=== PATIENT | male | born 1940 | race Caucasian/White ===

== ENCOUNTER 2019-04-14 10:13 | Outpatient (RCR) | payer MEDICARE, MEDICAID, SELFPAY | END 2019-04-27 00:01 | LOC: WOUND 10:13 | PROVIDERS: Family Provider Family Medicine; Visit Provider Nurse Practitioner Family | DX: I87.2 Venous insufficiency (chronic) (peripheral) (principal); L97.822 Non-pressure chronic ulcer of other part of left lower leg with fat layer exposed; L97.812 Non-pressure chronic ulcer of other part of right lower leg with fat layer exposed | CPT/HCPCS: 11042 ×2; 93923 ==

== ENCOUNTER 2019-05-26 13:04 | Outpatient (RCR) | payer MEDICARE, MEDICAID, SELFPAY | END 2019-05-28 23:59 | disposition home or self-care (01) | LOC: WOUND 13:04 | PROVIDERS: Family Provider Family Medicine; PCP Family Medicine; Visit Provider Nurse Practitioner Family | DX: I87.2 Venous insufficiency (chronic) (peripheral) (principal); L97.822 Non-pressure chronic ulcer of other part of left lower leg with fat layer exposed; L97.812 Non-pressure chronic ulcer of other part of right lower leg with fat layer exposed | CPT/HCPCS: 11042 ==

== ENCOUNTER 2019-06-09 10:19 | Outpatient (RCR) | payer MEDICARE, MEDICAID, SELFPAY | END 2019-06-26 23:59 | disposition home or self-care (01) | LOC: WOUND 10:19 | PROVIDERS: Family Provider Family Medicine; PCP Family Medicine; Visit Provider Nurse Practitioner Family | DX: I87.2 Venous insufficiency (chronic) (peripheral) (principal); L97.822 Non-pressure chronic ulcer of other part of left lower leg with fat layer exposed | CPT/HCPCS: 11042 ==

== ENCOUNTER 2019-07-14 09:21 | Outpatient (RCR) | payer MEDICARE, MEDICAID, SELFPAY | END 2019-07-27 23:59 | disposition home or self-care (01) | LOC: WOUND 09:21 | PROVIDERS: Family Provider Family Medicine; PCP Family Medicine; Visit Provider Emergency Medicine | DX: I87.2 Venous insufficiency (chronic) (peripheral) (principal); L97.822 Non-pressure chronic ulcer of other part of left lower leg with fat layer exposed | CPT/HCPCS: 11042 ==

== ENCOUNTER 2019-08-25 08:17 | Outpatient (RCR) | payer MEDICARE, MEDICAID, SELFPAY ==
--- NOTE | 2019-08-09 10:29 | USCV_ITS ---
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 Risk Factors: None Previous Vascular Surgery: STENTS RT LEG RIGHT LEFT BP: 130.0 / 76.00 BP: 130.0/ 70.00 0 0 Waveform Velocity (cm/s) Velocity (cm/s) Waveform Triphasic 120.2 Iliac Prox Triphasic Iliac Mid 97.6 Triphasic 99.6 Iliac Distal Biphasic 76.9 PIPE SUPERVISOR Biphasic 88.7 SFA Prox Biphasic 78.5 SFA Mid Biphasic 59.7 SFA Dist Triphasic POP 65.3 Biphasic 54.2 HOIST OPERATOR Monophasic 45.0 DPA 1.1 MARI FINDINGS Normal resting MARI Mild to moderate plaques in the iliac and femoral arteries on the right side CONCLUSIONS No evidence of any significant arterial obstruction in the [facility] lower extremity, based on the above findings. Dr Yomi Nielsen MD [facility] (Electronically Signed) Final Date: 09 August 2019 12:22 S
== END 2019-08-26 23:59 | disposition home or self-care (01) ==
LOC: WOUND 08:17
PROVIDERS: Family Provider Family Medicine; PCP Family Medicine; Visit Provider Thoracic Surgery (Cardiothoracic Vascular Surgery)
DX: I87.2 Venous insufficiency (chronic) (peripheral) (principal); L97.822 Non-pressure chronic ulcer of other part of left lower leg with fat layer exposed
CPT/HCPCS: 11042; 93926

== ENCOUNTER 2019-09-08 08:24 | Outpatient (CLI) | payer MEDICARE, MEDICAID, SELFPAY | END 2019-09-08 08:25 | disposition home or self-care (01) | LOC: WOUND 08:27 | PROVIDERS: Family Provider Family Medicine; PCP Family Medicine; Visit Provider Thoracic Surgery (Cardiothoracic Vascular Surgery) | DX: I87.2 Venous insufficiency (chronic) (peripheral) (principal); L97.822 Non-pressure chronic ulcer of other part of left lower leg with fat layer exposed | CPT/HCPCS: 11042 ==

== ENCOUNTER 2019-09-15 08:37 | Outpatient (CLI) | payer MEDICARE, MEDICAID, SELFPAY | END 2019-09-15 08:38 | disposition home or self-care (01) | LOC: WOUND 08:38 | PROVIDERS: Family Provider Family Medicine; PCP Family Medicine; Visit Provider Thoracic Surgery (Cardiothoracic Vascular Surgery) | DX: I87.2 Venous insufficiency (chronic) (peripheral) (principal); L97.822 Non-pressure chronic ulcer of other part of left lower leg with fat layer exposed | CPT/HCPCS: 11042 ==

== ENCOUNTER 2019-09-22 09:53 | Outpatient (CLI) | payer MEDICARE, MEDICAID, SELFPAY | END 2019-09-22 09:54 | disposition home or self-care (01) | LOC: WOUND 09:54 | PROVIDERS: Family Provider Family Medicine; PCP Family Medicine; Visit Provider Thoracic Surgery (Cardiothoracic Vascular Surgery) | DX: I87.2 Venous insufficiency (chronic) (peripheral) (principal); L97.822 Non-pressure chronic ulcer of other part of left lower leg with fat layer exposed | CPT/HCPCS: 11042 ==

== ENCOUNTER → 2019-09-28 08:36 | Outpatient (BNVA) | payer MEDICARE, MEDICAID, SELFPAY | PROVIDERS: Family Provider Family Medicine; PCP Family Medicine; Visit Provider Internal Medicine Cardiovascular Disease | DX: I73.9 Peripheral vascular disease, unspecified (principal) | CPT/HCPCS: 80048; 85025; 87635 ==

== ENCOUNTER 2019-09-30 12:11 | Observation (INO) | payer MEDICARE, MEDICAID, SELFPAY ==
[2019-09-30] VITALS (17 sets, daily range): BP systolic 130–149; BP diastolic 75–90; PULSE 58–72; RESP 16–25; TEMP 36.4–36.5; O2SAT 96–98; BMI 33.0
--- NOTE | 2019-09-30 09:00 | XACV_ITS ---
Wt: 113 kg BSA: 2.45 m2 Gender: Male : 1940 Exam Type: Invasive Peripheral Vascular Procedure(s): Procedure Description: Peripheral Cath Diagnostic Procedure Procedure Description: Abdominal aortic angiography Procedure Description: Iliac arterial aortic angiography Procedure Description: Lower extremities' angiography Exam Priority: Routine Lower Extremity Interventional Findings Indication for peripheral angiogram: Lifestyle limiting claudication. #1 Abdominal aorta: Luminal irregularities #2 Left and renal artery has luminal irregularities. #3 Right common iliac artery has luminal irregularity #4 Left common iliac artery has luminal irregularities #5 Left internal iliac artery has luminal irregularity #7 Right external, internal iliac and common femoral artery has luminal irregularity #8 Left common femoral artery is luminal irregularity #9 Left profunda femoral artery has luminal irregularity #10 Left SFA has luminal irregularities #11 Left popliteal artery has luminal irregularities#12 Left tibioperoneal trunk has luminal irregularity with good three-vessel runoff, right side popliteal artery with 2 vessel runoff noted below the knee . Recommendations 1-Return to inpatient for close monitoring and routine cath care2-Risk factor modification for secondary prevention3-Statin and aspirin 81 mg life--long, if tolerated4-Continue optimal medical management5-Follow up with Dr. Branch and your primary care in 10 days. Access Site Site: Right Femoral artery Sheath Size: 6 Fr Hemost... Success: Unsuccessful Procedure Details Findings Procedure Consent Obtained. Pre-Procedure Time Out. Identified patient by full name and date of as verbalized by the patient/guarantor. Does the consent match the physician's order: Yes. Accurate & Complete Informed Consent: Yes. Inpatient/Outpatient History & Physical on Chart: Yes. If H&P is completed, is and addenduem needed: N/A; If yes, is the addendum complete: N/A. Visualize and Verify Site with Patient/Guarantor: N/A. Relevant Radiology Images available: N/A. The risks, benefits, and alternatives of sedation and/or procedure were discussed by physician. The patient agrees to continue. Procedure started. Correct patient, site and procedure confirmed by cath team. Current diagnosis: PVD. PERRLA. 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 Lungs clear x 5 lobes. IV Site on Arrival: 18 gauge in the left anticubital. IV Fluids: 0.9% NaCl at KVO. 0 mL infused prior to garage laborer. Pre Procedural Pulses: bilateral dorsalis pedis was Doppled. Pre Procedural Pulses: bilateral posterior tibial was Doppled. Oxygen started at 2liters/min via nasal canula. bilateral groins was prepped with chloroprep then draped in the usual sterile fashion. Physician notified. Baseline sample Acquired. HR: 57 BPM. Equipment: 6F - Femoral. patients medications: GISELLE inhibitor 5mg, Aspirin 81mg, Beta ketan 50mg, Plavix 75mg, Statin 80mg. Physician arrived. Physician scrubbed in. Time out performed with cath team. Lidocaine 1% infiltrated to the right groin. Arterial access obtained with micropuncture set. A 5FrFr UF catheter in over wire. and seated in the distal aorta. wire out. Abdominal aortogram performed in AP @ 10 mL/sec for a total of 30 mL. UF seated at the bifurcation left leg runoff performed 10ml for a total of 30ml. glide wire inserted and the UF removed Rim inserted and seated at the bifurcation. left leg runoff performed in AP @ 10 mL/sec for a total of 30 mL. glide wire inserted RIM removed. Seeker inserted over the wire and advanced down left leg. hand injection performed left lower leg. wire inserted Seeker removed. right leg runoff performed thru [id number] for a total of 30ml. A Right femoral angiogram was performed to determine safe placement of closure device. Sheath(s) removed and manual pressure held until hemostasis was achieved. Sterile 4x4 and Op-site applied to the puncture site. No oozing or hematoma noted. Post sheath removal instructions were given and the patient verbalized understanding. Post Procedure: Pulses reassessed and unchanged. PERRLA. 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 No VTE prophylaxis required. Medication's Wasted: Heparin = 1000 Units. Total IV fluids: 50 mL. Fluoro: 10:05. Contrast type used: Visipaque 320 mgI/mL, 500 mL bottle. [id number]. [id number]. Post-op diagnosis: skin ulcer. Complications: none. Estimated blood loss: 5mL-10mL. Procedure completed. Patient transferred by bed to ICU. Procedure Medications Start: 10:17 AM Stop: 10:17 AM Medication: Versed Amount: 1 mg Route: I.V. Start: 10:18 AM Stop: 10:18 AM Medication: Fentanyl Amount: 50 mcg Route: I.V. Start: 10:44 AM Stop: 10:44 AM Medication: Versed Amount: 1 mg Route: I.V. Start: 10:44 AM Stop: 10:44 AM Medication: Fentanyl Amount: 50 mcg Route: I.V. I, the attending physician, have reviewed and verified all procedure medications. Yes, all medications given per verbal order History/Risk Factors Hypertension: Yes Dyslipidemia: Yes Peripheral Arterial Disease (PAD): Yes Myocardial Infarction (OH): No Obesity: Yes Renal Disease: No Tobacco Use: Former Prior Interventions PCI: Yes CABG: No Valve Surgery: No Report Signatures Finalized by:Tate Branch MD on 10/16/2019 4:13:42 PM
[2019-09-30] MEDS: diphenhydrAMINE 50 mg Capsule PO (09:14)
--- NOTE | 2019-09-30 09:20 | SUR.PREOP ---
The patient had several questions about why he might have to spend the night. This nurse along with Lucas Delgado RN, CASING IN LINE SETTER, explained the different scenarios to the patient and he is adamant about going home now, requesting to call his caregiver immediately. Once talking with Rubia, the caregiver, the patient decided that he would stay long enough to talk to Dr. Branch.
--- NOTE | 2019-09-30 09:53 | SUR.PREOP ---
Dr Branch at bedside to talk to the patient. Will continue with angiogram at this time.
--- NOTE | 2019-09-30 09:56 | W.PM.OPSFHP ---
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 Today he is here for peripheral vascular angiogram for left leg. Patient continues to have lifestyle limiting claudication and nonhealing left leg ulcer. He denies fever chills nausea vomiting diarrhea. Patient has been explained all risk benefit and alternative for the procedure. Medications/Allergies* Home Medications Medication Instructions Recorded Confirmed Type aspirin 81 mg tablet,delayed 81 mg PO DAILY tab 04/27/19 08/18/19 History release clopidogrel 75 mg tablet 75 mg PO DAILY tab 04/27/19 08/18/19 History lisinopril 5 mg tablet 5 mg PO DAILY tab 04/27/19 08/18/19 History metoprolol tartrate 25 mg tablet 50 mg PO DAILY tab 04/27/19 08/18/19 History simvastatin 80 mg tablet 80 mg PO ONCE 04/27/19 08/18/19 History Allergies/Adverse Reactions Allergy/AdvReac Type Severity Reaction Status Date / Time adhesive tape Allergy RASH Verified 07/05/19 15:14 bacitracin Allergy ITCHING Verified 07/05/19 15:14 [From Neosporin ([id number])] minocycline Allergy DIFFICULTY Verified 07/05/19 15:14 BREATHING neomycin Allergy ITCHING Verified 07/05/19 15:14 [From Neosporin ([id number])] polymyxin B Allergy ITCHING Verified 07/05/19 15:14 [From Neosporin ([id number])] Current Medications: Generic Name Dose Route Start Last Admin Trade Name Freq PRN Reason Stop Dose Admin Sodium Chloride 1,000 mls @ 50 mls/hr 09/30/19 09:00 09/30/19 09:14 Sodium Chloride 0.9% IV 10/01/19 04:59 Not Given .Q20H ONE Pertinent History/Comorbid Conditions* Medical History (Updated 07/05/19 @ 15:14 by Alen Winters MD) HTN (hypertension) Ischemia of extremity Ischemia of lower extremity Umbilical hernia Surgical History (Updated 07/05/19 @ 15:14 by Alen Winters MD) History of coronary artery stent placement Family History (Updated 04/29/19 @ 13:19 by Grace Luciano RN) Denies family history of Diabetes CAD (coronary artery disease) Clotting disorder Dementia Hyperlipidemia Psychiatric illness Chronic kidney disease (CKD) Suicide Anesthesia complication Bleeding disorder Family history of premature coronary artery disease Lung disease Cancer Hypertension Stroke Social History Smoking and tobacco status: former smoker Quit status (tobacco): has quit using tobacco Alcohol intake: never Pertinent Exam Findings alert, oriented x 3, clear to auscultation bilaterally and regular rate & rhythm Conscious Sedation Assessment PATIENT ASSESSED PRIOR TO SEDATION, WITH NO CHANGE NOTED: Yes AIRWAY EVAL/ANESTHESIA PLAN: normal airway, ASA II, Risks, benefits & alternatives of sedation and/or procedure discussed and Patient agrees to continue as planned Recommendations Surgery/Procedure today Other Plans: Patient has been consented for risk benefit and alternative for the procedure. Patient would like to proceed with it. He wishes to be discharged same day. I have discussed with the patient that I will try to put a Perclose in the right common femoral area Coding Level of Care Code Acute Horticulture/Floriculture Teacher for Kaylene Breaux
--- NOTE | 2019-09-30 18:43 | PC.NURSE ---
PATIENT ATE WELL AT LUNCH AND AT DINNER. HE WALKED THE UNIT WITH NO VS CHANGES. HIS RHYTHM WAS SINUS ЕЛЕНА WITH A SMALL FIRST DEGREE BLOCK RATE 58 AND THEN HIGH 80 WHILE AMBULATING THE UNIT. HIS TURKISH LINE ATTENDANT WAS INFORMED OF LIMITATIONS ON HIS LIFTING AND WHAT TO OBSERVE AT THE CATH SITE THAT WAS WORTHY OF [address] VISIT. PATIENTS IV WAS REMOVED AT 1730 AND HE WAS ESCORTED PER WC TO THE PARKING LOT.
== END 2019-09-30 18:00 | disposition home or self-care (01) ==
LOC: CCL 12:12 → ICU 12:12
PROVIDERS: Admitting Provider Internal Medicine Cardiovascular Disease; PCP Family Medicine; Visit Provider Internal Medicine Cardiovascular Disease
DX: I73.9 Peripheral vascular disease, unspecified (principal); L97.829 Non-pressure chronic ulcer of other part of left lower leg with unspecified severity; Z79.82 Long term (current) use of aspirin; I10 Essential (primary) hypertension; Z87.891 Personal history of nicotine dependence; E78.5 Hyperlipidemia, unspecified; E66.9 Obesity, unspecified; Z68.33 Body mass index [BMI] 33.0-33.9, adult
CPT/HCPCS: 12345; 36415; 75625; 75716; C1769; C1887; C1894; G0378; J1644; J2001; J2250; J3010; J7030; Q0163; Q9967

== ENCOUNTER 2019-10-06 08:53 | Outpatient (CLI) | payer MEDICARE, MEDICAID, SELFPAY | END 2019-10-06 08:54 | disposition home or self-care (01) | LOC: WOUND 08:58 | PROVIDERS: PCP Family Medicine; Visit Provider Thoracic Surgery (Cardiothoracic Vascular Surgery) | DX: I87.2 Venous insufficiency (chronic) (peripheral) (principal); L97.822 Non-pressure chronic ulcer of other part of left lower leg with fat layer exposed | CPT/HCPCS: 11042 ==

== ENCOUNTER 2019-10-13 09:09 | Outpatient (CLI) | payer MEDICARE, MEDICAID, SELFPAY | END 2019-10-13 09:10 | disposition home or self-care (01) | LOC: WOUND 09:11 | PROVIDERS: PCP Family Medicine; Visit Provider Nurse Practitioner Family | DX: I87.2 Venous insufficiency (chronic) (peripheral) (principal); L97.822 Non-pressure chronic ulcer of other part of left lower leg with fat layer exposed | CPT/HCPCS: 11042 ==

== ENCOUNTER 2019-10-20 08:25 | Outpatient (CLI) | payer MEDICARE, MEDICAID, SELFPAY | END 2019-10-20 08:26 | disposition home or self-care (01) | LOC: WOUND 08:27 | PROVIDERS: PCP Family Medicine; Visit Provider Thoracic Surgery (Cardiothoracic Vascular Surgery) | DX: I87.2 Venous insufficiency (chronic) (peripheral) (principal); L97.822 Non-pressure chronic ulcer of other part of left lower leg with fat layer exposed | CPT/HCPCS: 11042 ==

== ENCOUNTER 2019-10-27 08:20 | Outpatient (CLI) | payer MEDICARE, MEDICAID, SELFPAY | END 2019-10-27 08:21 | disposition home or self-care (01) | LOC: WOUND 08:21 | PROVIDERS: PCP Family Medicine; Visit Provider Thoracic Surgery (Cardiothoracic Vascular Surgery) | DX: I87.2 Venous insufficiency (chronic) (peripheral) (principal); L97.822 Non-pressure chronic ulcer of other part of left lower leg with fat layer exposed | CPT/HCPCS: 11042 ==

== ENCOUNTER 2019-11-09 13:29 | Outpatient (CLI) | payer MEDICARE, MEDICAID, SELFPAY ==
--- NOTE | 2019-11-09 13:30 | USCV_ITS ---
Casey Reeves Age: 79 Gender: M : 1940 Exam Date: 11/09/2019 14:23 Ordering Phys: Tate Branch MD ([email or web address]) Technologist: Anthony Christianson Exam Location: [facility] – [place] Indication: HISTORY: HX OF LT GSAPH ABLATION. PROCEDURES: Bilateral duplex Venous Insufficiency study of the Deep and Superficial systems was carried out according to normal protocol with the patient in supine positon for deep system and dependent position for the superficial system. FINDINGS: All deep veins demonstrated compressibility without evidence of intraluminal thrombus or increased echogenicity. THERE IS NO SIGNIFICANT REFLUX ON THE RT AND THE SAPH VEINS ARE SMALL. THE LT GSAPH VEIN IS POST ABLATION AND THERE IS THROMBUS IN THE MID AND DISTAL GSAPH. THE LT GSAPH APPEARS NORMAL FOR A POST ABLATION VEIN. CONCLUSIONS 1. No evidence of DVT in the above-mentioned identifiable veins. 2. No significant venous reflux on the right side 3. The greater saphenous vein on the left side appears to have thrombus at the mid and distal segments. Significant venous reflux of greater than 500 ms was noted at the saphenofemoral junction, distal to the saphenofemoral junction and proximal segment of the greater saphenous vein (1430,1280 and 1840 msecs respectively.). These venous segments were greater than 1 cm deep from the surface and measured 0.58 to 1.0 cm in diameter. 4. The left below-knee greater saphenous vein and the small saphenous veins were found to be patent, with no significant reflux. 5. The venous dimensions and the depth from the surface are as mentioned above.. Dr Yomi Nielsen MD [facility] (Electronically Signed) Final Date: 10 November 2019 22:16 S
== END 2019-11-09 13:30 | disposition home or self-care (01) ==
LOC: RAD 13:33
PROVIDERS: PCP Family Medicine; Visit Provider Internal Medicine Cardiovascular Disease
DX: I73.9 Peripheral vascular disease, unspecified (principal)
CPT/HCPCS: 93970

== ENCOUNTER 2019-11-16 14:21 | Outpatient (CLI) | payer MEDICARE, MEDICAID, SELFPAY | END 2019-11-16 14:22 | disposition home or self-care (01) | LOC: WOUND 14:23 | PROVIDERS: PCP Family Medicine; Visit Provider Thoracic Surgery (Cardiothoracic Vascular Surgery) | DX: I87.2 Venous insufficiency (chronic) (peripheral); L97.822 Non-pressure chronic ulcer of other part of left lower leg with fat layer exposed | CPT/HCPCS: 11042 ==

== ENCOUNTER 2019-11-23 14:16 | Outpatient (CLI) | payer MEDICARE, MEDICAID, SELFPAY | END 2019-11-23 14:17 | disposition home or self-care (01) | LOC: WOUND 14:18 | PROVIDERS: PCP Family Medicine; Visit Provider Thoracic Surgery (Cardiothoracic Vascular Surgery) | DX: I87.2 Venous insufficiency (chronic) (peripheral) (principal); L97.822 Non-pressure chronic ulcer of other part of left lower leg with fat layer exposed | CPT/HCPCS: 11042 ==

== ENCOUNTER 2019-11-30 14:58 | Outpatient (CLI) | payer MEDICARE, MEDICAID, SELFPAY | END 2019-11-30 14:59 | disposition home or self-care (01) | LOC: WOUND 14:59 | PROVIDERS: PCP Family Medicine; Visit Provider Thoracic Surgery (Cardiothoracic Vascular Surgery) | DX: I87.2 Venous insufficiency (chronic) (peripheral) (principal); L97.822 Non-pressure chronic ulcer of other part of left lower leg with fat layer exposed | CPT/HCPCS: 11042 ==

== ENCOUNTER 2019-12-14 13:03 | Outpatient (CLI) | payer MEDICARE, MEDICAID, SELFPAY ==
--- NOTE | 2019-12-14 14:03 | USCV_ITS ---
Casey Reeves Age: 79 Gender: M : 1940 Exam Date: 12/14/2019 14:23 Ordering Phys: Ruth Neville Technologist: Olga Durham Exam Location: [facility] – [place] Indication: Left leg redness, swelling, pain. ? DVT HISTORY: Left lower extremity pain and swelling. PROCEDURES: Comparison: 11-09-19, 04/20/19 Venous duplex imaging was performed in only the left lower extremity. The following venous structures were evaluated: common femoral vein, profunda vein, proximal portion of the greater saphenous vein, superficial femoral vein, and the popliteal vein. In addition, the posterior tibial and peroneal trunk were evaluated. Serial compression, augmentation maneuvers, and spectral Doppler flow evaluation were performed. FINDINGS: No evidence of DVT seen in any vessel visualized at this time. Superficial thrombus noted in the GSV mid-distal thigh. Partially thrombosed left popliteal artery aneurysm and seen on a prior CTA. CONCLUSIONS No DVT left lower extremity. Partially thrombosed left popliteal artery aneurysm. Dr. Debbie Cervantes DO (Electronically Signed) Final Date: 14 December 2019 15:58 S
== END 2019-12-14 13:04 | disposition home or self-care (01) ==
LOC: WOUND 13:04
PROVIDERS: PCP Family Medicine; Visit Provider Nurse Practitioner Family
DX: I87.2 Venous insufficiency (chronic) (peripheral) (principal); L97.822 Non-pressure chronic ulcer of other part of left lower leg with fat layer exposed; L97.522 Non-pressure chronic ulcer of other part of left foot with fat layer exposed; M79.605 Pain in left leg
CPT/HCPCS: 11042; 11045; 87070; 87077; 87176; 87186; 87205; 93971

== ENCOUNTER 2019-12-28 13:22 | Outpatient (CLI) | payer MEDICARE, MEDICAID, SELFPAY | END 2019-12-28 13:23 | disposition home or self-care (01) | LOC: WOUND 13:26 | PROVIDERS: PCP Family Medicine; Visit Provider Thoracic Surgery (Cardiothoracic Vascular Surgery) | DX: I87.2 Venous insufficiency (chronic) (peripheral) (principal); L97.822 Non-pressure chronic ulcer of other part of left lower leg with fat layer exposed; L97.522 Non-pressure chronic ulcer of other part of left foot with fat layer exposed | CPT/HCPCS: 11042; 11045 ==

== ENCOUNTER 2020-01-11 13:04 | Outpatient (CLI) | payer MEDICARE, MEDICAID, SELFPAY | END 2020-01-11 13:05 | disposition home or self-care (01) | LOC: WOUND 13:05 | PROVIDERS: PCP Family Medicine; Visit Provider Thoracic Surgery (Cardiothoracic Vascular Surgery) | DX: I87.2 Venous insufficiency (chronic) (peripheral) (principal); L97.822 Non-pressure chronic ulcer of other part of left lower leg with fat layer exposed; L97.522 Non-pressure chronic ulcer of other part of left foot with fat layer exposed | CPT/HCPCS: 11042; 11045 ==

== ENCOUNTER 2020-01-18 13:18 | Outpatient (CLI) | payer MEDICARE, MEDICAID, SELFPAY | END 2020-01-18 13:19 | disposition home or self-care (01) | LOC: WOUND 13:19 | PROVIDERS: PCP Family Medicine; Visit Provider Thoracic Surgery (Cardiothoracic Vascular Surgery) | DX: I87.2 Venous insufficiency (chronic) (peripheral) (principal); L97.822 Non-pressure chronic ulcer of other part of left lower leg with fat layer exposed; L97.522 Non-pressure chronic ulcer of other part of left foot with fat layer exposed | CPT/HCPCS: 11042 ==

== ENCOUNTER 2020-01-25 13:54 | Outpatient (CLI) | payer MEDICARE, MEDICAID, SELFPAY | END 2020-01-25 13:55 | disposition home or self-care (01) | LOC: WOUND 13:55 | PROVIDERS: PCP Family Medicine; Visit Provider Thoracic Surgery (Cardiothoracic Vascular Surgery) | DX: I87.2 Venous insufficiency (chronic) (peripheral) (principal); L97.822 Non-pressure chronic ulcer of other part of left lower leg with fat layer exposed; L97.522 Non-pressure chronic ulcer of other part of left foot with fat layer exposed | CPT/HCPCS: 11042; 11045 ==

== ENCOUNTER 2020-02-08 13:24 | Outpatient (CLI) | payer MEDICARE, MEDICAID, SELFPAY | END 2020-02-08 13:25 | disposition home or self-care (01) | LOC: WOUND 13:24 | PROVIDERS: PCP Family Medicine; Visit Provider Thoracic Surgery (Cardiothoracic Vascular Surgery) | DX: I87.2 Venous insufficiency (chronic) (peripheral) (principal); L97.822 Non-pressure chronic ulcer of other part of left lower leg with fat layer exposed; L97.522 Non-pressure chronic ulcer of other part of left foot with fat layer exposed | CPT/HCPCS: 11042; 11045 ==

== ENCOUNTER 2020-02-15 13:29 | Outpatient (CLI) | payer MEDICARE, MEDICAID, SELFPAY | END 2020-02-15 13:30 | disposition home or self-care (01) | LOC: WOUND 13:29 | PROVIDERS: PCP Family Medicine; Visit Provider Thoracic Surgery (Cardiothoracic Vascular Surgery) | DX: I87.2 Venous insufficiency (chronic) (peripheral) (principal); L97.822 Non-pressure chronic ulcer of other part of left lower leg with fat layer exposed | CPT/HCPCS: 11042; 11045 ==

== ENCOUNTER 2020-02-22 14:37 | Outpatient (CLI) | payer MEDICARE, MEDICAID, SELFPAY | END 2020-02-22 14:38 | disposition home or self-care (01) | LOC: WOUND 14:40 | PROVIDERS: PCP Family Medicine; Visit Provider Thoracic Surgery (Cardiothoracic Vascular Surgery) | DX: I87.2 Venous insufficiency (chronic) (peripheral) (principal); L97.822 Non-pressure chronic ulcer of other part of left lower leg with fat layer exposed; L97.812 Non-pressure chronic ulcer of other part of right lower leg with fat layer exposed | CPT/HCPCS: 11042; 11045 ==

== ENCOUNTER 2020-03-07 13:43 | Outpatient (CLI) | payer MEDICARE, MEDICAID, SELFPAY | END 2020-03-07 13:44 | disposition home or self-care (01) | LOC: WOUND 13:44 | PROVIDERS: PCP Family Medicine; Visit Provider Thoracic Surgery (Cardiothoracic Vascular Surgery) | DX: I87.2 Venous insufficiency (chronic) (peripheral) (principal); L97.822 Non-pressure chronic ulcer of other part of left lower leg with fat layer exposed; L97.812 Non-pressure chronic ulcer of other part of right lower leg with fat layer exposed | CPT/HCPCS: 11042; 11045 ==

== ENCOUNTER 2020-03-10 15:50 | Outpatient (CLI) | payer MEDICARE, MEDICAID, SELFPAY | END 2020-03-10 15:51 | disposition home or self-care (01) | LOC: WOUND 15:50 | PROVIDERS: PCP Family Medicine; Visit Provider Surgery | DX: I87.2 Venous insufficiency (chronic) (peripheral) (principal); L97.822 Non-pressure chronic ulcer of other part of left lower leg with fat layer exposed | CPT/HCPCS: 29581 ==

== ENCOUNTER 2020-03-14 14:39 | Outpatient (CLI) | payer MEDICARE, MEDICAID, SELFPAY | END 2020-03-14 14:40 | disposition home or self-care (01) | LOC: WOUND 14:40 | PROVIDERS: PCP Family Medicine; Visit Provider Nurse Practitioner Family | DX: I87.2 Venous insufficiency (chronic) (peripheral) (principal); L97.812 Non-pressure chronic ulcer of other part of right lower leg with fat layer exposed; L97.822 Non-pressure chronic ulcer of other part of left lower leg with fat layer exposed | CPT/HCPCS: 11042; 11045 ==

== ENCOUNTER 2020-03-21 14:50 | Outpatient (CLI) | payer MEDICARE, MEDICAID, SELFPAY | END 2020-03-21 14:51 | disposition home or self-care (01) | LOC: WOUND 14:50 | PROVIDERS: PCP Family Medicine; Visit Provider Nurse Practitioner Family | DX: I87.2 Venous insufficiency (chronic) (peripheral) (principal); L97.822 Non-pressure chronic ulcer of other part of left lower leg with fat layer exposed; L97.812 Non-pressure chronic ulcer of other part of right lower leg with fat layer exposed | CPT/HCPCS: 11042 ==

== ENCOUNTER 2020-03-28 13:14 | Outpatient (CLI) | payer MEDICARE, MEDICAID, SELFPAY | END 2020-03-28 13:15 | disposition home or self-care (01) | LOC: WOUND 13:15 | PROVIDERS: PCP Family Medicine; Visit Provider Thoracic Surgery (Cardiothoracic Vascular Surgery) | DX: I87.2 Venous insufficiency (chronic) (peripheral) (principal); L97.822 Non-pressure chronic ulcer of other part of left lower leg with fat layer exposed; L97.812 Non-pressure chronic ulcer of other part of right lower leg with fat layer exposed | CPT/HCPCS: 11042 ==

== ENCOUNTER 2020-04-13 15:16 | Outpatient (CLI) | payer MEDICARE, MEDICAID, SELFPAY | END 2020-04-13 15:17 | disposition home or self-care (01) | LOC: WOUND 15:17 | PROVIDERS: PCP Family Medicine; Visit Provider Thoracic Surgery (Cardiothoracic Vascular Surgery) | DX: I87.2 Venous insufficiency (chronic) (peripheral) (principal); L97.822 Non-pressure chronic ulcer of other part of left lower leg with fat layer exposed; L97.812 Non-pressure chronic ulcer of other part of right lower leg with fat layer exposed | CPT/HCPCS: 11042 ==

== ENCOUNTER 2020-04-25 14:36 | Outpatient (CLI) | payer MEDICARE, MEDICAID, SELFPAY | END 2020-04-25 14:37 | disposition home or self-care (01) | LOC: WOUND 14:36 | PROVIDERS: PCP Family Medicine; Visit Provider Nurse Practitioner Family | DX: I87.2 Venous insufficiency (chronic) (peripheral) (principal); L97.812 Non-pressure chronic ulcer of other part of right lower leg with fat layer exposed; L97.822 Non-pressure chronic ulcer of other part of left lower leg with fat layer exposed | CPT/HCPCS: 11042 ==

== ENCOUNTER 2020-05-16 11:23 | Outpatient (CLI) | payer MEDICARE, MEDICAID, SELFPAY | END 2020-05-16 11:24 | disposition home or self-care (01) | LOC: WOUND 11:24 | PROVIDERS: PCP Family Medicine; Visit Provider Thoracic Surgery (Cardiothoracic Vascular Surgery) | DX: I87.2 Venous insufficiency (chronic) (peripheral) (principal); L97.812 Non-pressure chronic ulcer of other part of right lower leg with fat layer exposed; L97.822 Non-pressure chronic ulcer of other part of left lower leg with fat layer exposed | CPT/HCPCS: 11042 ==

== ENCOUNTER 2020-05-30 14:01 | Outpatient (CLI) | payer MEDICARE, MEDICAID, SELFPAY | END 2020-05-30 14:02 | disposition home or self-care (01) | LOC: WOUND 14:04 | PROVIDERS: PCP Family Medicine; Visit Provider Thoracic Surgery (Cardiothoracic Vascular Surgery) | DX: I87.2 Venous insufficiency (chronic) (peripheral) (principal); L97.822 Non-pressure chronic ulcer of other part of left lower leg with fat layer exposed; L97.812 Non-pressure chronic ulcer of other part of right lower leg with fat layer exposed | CPT/HCPCS: 11042 ==

== ENCOUNTER 2020-06-20 14:47 | Outpatient (CLI) | payer MEDICARE, MEDICAID, SELFPAY | END 2020-06-20 14:48 | disposition home or self-care (01) | LOC: WOUND 14:48 | PROVIDERS: PCP Family Medicine; Visit Provider Thoracic Surgery (Cardiothoracic Vascular Surgery) | DX: I87.2 Venous insufficiency (chronic) (peripheral) (principal); L97.822 Non-pressure chronic ulcer of other part of left lower leg with fat layer exposed; L97.812 Non-pressure chronic ulcer of other part of right lower leg with fat layer exposed | CPT/HCPCS: 11042 ==

== ENCOUNTER 2020-06-27 10:52 | Outpatient (CLI) | payer MEDICARE, MEDICAID, SELFPAY | END 2020-06-27 10:53 | disposition home or self-care (01) | LOC: WOUND 10:53 | PROVIDERS: PCP Family Medicine; Visit Provider Thoracic Surgery (Cardiothoracic Vascular Surgery) | DX: I87.2 Venous insufficiency (chronic) (peripheral) (principal); L97.822 Non-pressure chronic ulcer of other part of left lower leg with fat layer exposed; L97.812 Non-pressure chronic ulcer of other part of right lower leg with fat layer exposed | CPT/HCPCS: 11042 ==

== ENCOUNTER 2020-07-11 15:08 | Outpatient (CLI) | payer MEDICARE, MEDICAID, SELFPAY | END 2020-07-11 15:09 | disposition home or self-care (01) | LOC: WOUND 15:09 | PROVIDERS: PCP Family Medicine; Visit Provider Thoracic Surgery (Cardiothoracic Vascular Surgery) | DX: I87.2 Venous insufficiency (chronic) (peripheral) (principal); L97.822 Non-pressure chronic ulcer of other part of left lower leg with fat layer exposed; L97.812 Non-pressure chronic ulcer of other part of right lower leg with fat layer exposed | CPT/HCPCS: 11042 ==

== ENCOUNTER 2020-07-25 13:55 | Outpatient (CLI) | payer MEDICARE, MEDICAID, SELFPAY | END 2020-07-25 13:56 | disposition home or self-care (01) | LOC: WOUND 13:58 | PROVIDERS: PCP Family Medicine; Visit Provider Thoracic Surgery (Cardiothoracic Vascular Surgery) | DX: I87.2 Venous insufficiency (chronic) (peripheral) (principal); L97.822 Non-pressure chronic ulcer of other part of left lower leg with fat layer exposed; L97.812 Non-pressure chronic ulcer of other part of right lower leg with fat layer exposed | CPT/HCPCS: 11042 ==

== ENCOUNTER 2020-08-08 14:10 | Outpatient (CLI) | payer MEDICARE, MEDICAID, SELFPAY | END 2020-08-08 14:11 | disposition home or self-care (01) | LOC: WOUND 14:11 | PROVIDERS: PCP Family Medicine; Visit Provider Thoracic Surgery (Cardiothoracic Vascular Surgery) | DX: I87.2 Venous insufficiency (chronic) (peripheral) (principal); L97.822 Non-pressure chronic ulcer of other part of left lower leg with fat layer exposed; L97.812 Non-pressure chronic ulcer of other part of right lower leg with fat layer exposed | CPT/HCPCS: 11042 ==

== ENCOUNTER 2020-08-22 14:13 | Outpatient (CLI) | payer MEDICARE, MEDICAID, SELFPAY | END 2020-08-22 14:14 | disposition home or self-care (01) | LOC: WOUND 14:16 | PROVIDERS: PCP Family Medicine; Visit Provider Thoracic Surgery (Cardiothoracic Vascular Surgery) | DX: I87.2 Venous insufficiency (chronic) (peripheral) (principal); L97.822 Non-pressure chronic ulcer of other part of left lower leg with fat layer exposed; L97.812 Non-pressure chronic ulcer of other part of right lower leg with fat layer exposed | CPT/HCPCS: 11042 ==

== ENCOUNTER 2020-09-05 13:54 | Outpatient (CLI) | payer MEDICARE, MEDICAID, SELFPAY | END 2020-09-05 13:55 | disposition home or self-care (01) | LOC: WOUND 13:55 | PROVIDERS: PCP Family Medicine; Visit Provider Thoracic Surgery (Cardiothoracic Vascular Surgery) | DX: I87.2 Venous insufficiency (chronic) (peripheral) (principal); L97.822 Non-pressure chronic ulcer of other part of left lower leg with fat layer exposed | CPT/HCPCS: 11042 ==

== ENCOUNTER 2020-09-19 13:48 | Outpatient (CLI) | payer MEDICARE, MEDICAID, SELFPAY | END 2020-09-19 13:49 | disposition home or self-care (01) | LOC: WOUND 13:50 | PROVIDERS: PCP Family Medicine; Visit Provider Nurse Practitioner Family | DX: I87.2 Venous insufficiency (chronic) (peripheral) (principal); L97.822 Non-pressure chronic ulcer of other part of left lower leg with fat layer exposed | CPT/HCPCS: 11042 ==

== ENCOUNTER 2020-12-14 13:05 | Outpatient (CLI) | payer MEDICARE, MEDICAID, SELFPAY | END 2020-12-14 13:06 | disposition home or self-care (01) | PROVIDERS: PCP Family Medicine; Visit Provider Thoracic Surgery (Cardiothoracic Vascular Surgery) | DX: I96 Gangrene, not elsewhere classified (principal); I87.2 Venous insufficiency (chronic) (peripheral); L97.812 Non-pressure chronic ulcer of other part of right lower leg with fat layer exposed; Z87.891 Personal history of nicotine dependence | CPT/HCPCS: 11042; G0463 ==

== ENCOUNTER 2020-12-14 14:31 | Outpatient (CLI) | payer MEDICARE, MEDICAID, SELFPAY ==
--- NOTE | 2020-12-14 14:50 | USCV_ITS ---
Casey Reeves Age: 80 Gender: M : 1940 Exam Date: 12/14/2020 15:03 Ordering Phys: Alex Stone MD (Andy) ([email or web address]) Technologist: Elysia Feliciano Exam Location: [facility] [place] Indication: SWOLLEN LEG WITH HISTORY OF DVT ON RT HISTORY: History of DVT on RT now pain and swelling on lt PROCEDURES: Venous duplex imaging was performed in only the left lower extremity. The following venous structures were evaluated: common femoral vein, profunda vein, proximal portion of the greater saphenous vein, superficial femoral vein, and the popliteal vein. In addition, the posterior tibial and peroneal trunk were evaluated. Serial compression, augmentation maneuvers, and spectral Doppler flow evaluation were performed. FINDINGS: Partial occlusive DVT Lt. POP. Pt states Lt GSV has been ablated. The popliteal vein was found to be partially compressible LT GSV not seen at . CONCLUSIONS Features of deep vein thrombosis involving the popliteal vein causing partial occlusion. The greater saphenous vein appears to be ablated on the left side Dr Yomi Nielsen MD [facility] (Electronically Signed) Final Date: 15 December 2020 18:36 S
== END 2020-12-14 14:32 | disposition home or self-care (01) ==
PROVIDERS: PCP Family Medicine; Visit Provider Thoracic Surgery (Cardiothoracic Vascular Surgery)
DX: L97.825 Non-pressure chronic ulcer of other part of left lower leg with muscle involvement without evidence of necrosis (principal); I87.2 Venous insufficiency (chronic) (peripheral); I96 Gangrene, not elsewhere classified; L97.812 Non-pressure chronic ulcer of other part of right lower leg with fat layer exposed; Z87.891 Personal history of nicotine dependence
CPT/HCPCS: 11042; 93971; G0463

== ENCOUNTER 2020-12-21 13:37 | Outpatient (CLI) | payer MEDICARE, MEDICAID, SELFPAY | END 2020-12-21 13:38 | disposition home or self-care (01) | LOC: WOUND 13:38 | PROVIDERS: PCP Family Medicine; Visit Provider Thoracic Surgery (Cardiothoracic Vascular Surgery) | DX: I96 Gangrene, not elsewhere classified (principal); L97.812 Non-pressure chronic ulcer of other part of right lower leg with fat layer exposed; Z87.891 Personal history of nicotine dependence | CPT/HCPCS: 11042 ==

== ENCOUNTER 2020-12-28 14:41 | Outpatient (CLI) | payer MEDICARE, MEDICAID, SELFPAY | END 2020-12-28 14:42 | disposition home or self-care (01) | LOC: WOUND 14:42 | PROVIDERS: PCP Family Medicine; Visit Provider Nurse Practitioner Family | DX: I87.2 Venous insufficiency (chronic) (peripheral) (principal); L97.812 Non-pressure chronic ulcer of other part of right lower leg with fat layer exposed; Z87.891 Personal history of nicotine dependence | CPT/HCPCS: 11042 ==

== ENCOUNTER 2021-01-11 14:05 | Outpatient (CLI) | payer MEDICARE, MEDICAID, SELFPAY | END 2021-01-11 14:06 | disposition home or self-care (01) | LOC: WOUND 14:06 | PROVIDERS: PCP Family Medicine; Visit Provider Emergency Medicine | DX: I87.2 Venous insufficiency (chronic) (peripheral) (principal); L97.812 Non-pressure chronic ulcer of other part of right lower leg with fat layer exposed; Z87.891 Personal history of nicotine dependence | CPT/HCPCS: 11042; 87070; 87176; 87205; 99212 ==

== ENCOUNTER 2021-01-18 13:34 | Outpatient (CLI) | payer MEDICARE, MEDICAID, SELFPAY | END 2021-01-18 13:35 | disposition home or self-care (01) | LOC: WOUND 13:35 | PROVIDERS: PCP Family Medicine; Visit Provider Emergency Medicine | DX: I87.2 Venous insufficiency (chronic) (peripheral) (principal); L97.812 Non-pressure chronic ulcer of other part of right lower leg with fat layer exposed; L97.311 Non-pressure chronic ulcer of right ankle limited to breakdown of skin; Z87.891 Personal history of nicotine dependence | CPT/HCPCS: 11042; 99212 ==

== ENCOUNTER 2021-02-01 13:04 | Outpatient (CLI) | payer MEDICARE, MEDICAID, SELFPAY | END 2021-02-01 13:05 | disposition home or self-care (01) | LOC: WOUND 13:04 | PROVIDERS: PCP Family Medicine; Visit Provider Nurse Practitioner Family | DX: I87.2 Venous insufficiency (chronic) (peripheral) (principal); L97.822 Non-pressure chronic ulcer of other part of left lower leg with fat layer exposed; L97.311 Non-pressure chronic ulcer of right ankle limited to breakdown of skin; Z87.891 Personal history of nicotine dependence | CPT/HCPCS: 11042 ==

== ENCOUNTER 2021-02-22 13:35 | Outpatient (CLI) | payer MEDICARE, MEDICAID, SELFPAY | END 2021-02-22 13:36 | disposition home or self-care (01) | LOC: WOUND 13:36 | PROVIDERS: PCP Family Medicine; Visit Provider Thoracic Surgery (Cardiothoracic Vascular Surgery) | DX: I87.2 Venous insufficiency (chronic) (peripheral) (principal); L97.822 Non-pressure chronic ulcer of other part of left lower leg with fat layer exposed; L97.312 Non-pressure chronic ulcer of right ankle with fat layer exposed; I73.9 Peripheral vascular disease, unspecified; I10 Essential (primary) hypertension; Z87.891 Personal history of nicotine dependence | CPT/HCPCS: 11042 ==

== ENCOUNTER 2021-03-01 13:09 | Outpatient (CLI) | payer MEDICARE, MEDICAID, SELFPAY | END 2021-03-01 13:10 | disposition home or self-care (01) | LOC: WOUND 13:09 | PROVIDERS: PCP Family Medicine; Visit Provider Nurse Practitioner Family | DX: I87.2 Venous insufficiency (chronic) (peripheral) (principal); L97.822 Non-pressure chronic ulcer of other part of left lower leg with fat layer exposed; L97.311 Non-pressure chronic ulcer of right ankle limited to breakdown of skin; Z87.891 Personal history of nicotine dependence | CPT/HCPCS: 11042; 87070; 87077; 87176; 87186; 87205; A6252 ==

== ENCOUNTER 2021-03-29 14:09 | Outpatient (CLI) | payer MEDICARE, MEDICAID, SELFPAY | END 2021-03-29 14:10 | disposition home or self-care (01) | LOC: WOUND 14:11 | PROVIDERS: PCP Family Medicine; Visit Provider Emergency Medicine | DX: I87.2 Venous insufficiency (chronic) (peripheral) (principal); L97.822 Non-pressure chronic ulcer of other part of left lower leg with fat layer exposed; L97.312 Non-pressure chronic ulcer of right ankle with fat layer exposed; Z87.891 Personal history of nicotine dependence | CPT/HCPCS: 11042; 11045 ==

== ENCOUNTER 2021-04-05 14:35 | Outpatient (CLI) | payer MEDICARE, MEDICAID, SELFPAY | END 2021-04-05 14:36 | disposition home or self-care (01) | LOC: WOUND 14:36 | PROVIDERS: PCP Family Medicine; Visit Provider Emergency Medicine | DX: I87.2 Venous insufficiency (chronic) (peripheral) (principal); L97.822 Non-pressure chronic ulcer of other part of left lower leg with fat layer exposed; L97.312 Non-pressure chronic ulcer of right ankle with fat layer exposed; Z87.891 Personal history of nicotine dependence | CPT/HCPCS: 11042; 11045; A6252; A6253 ==

== ENCOUNTER 2021-04-12 13:59 | Outpatient (CLI) | payer MEDICARE, MEDICAID, SELFPAY | END 2021-04-12 14:00 | disposition home or self-care (01) | LOC: WOUND 14:02 | PROVIDERS: PCP Family Medicine; Visit Provider Nurse Practitioner Family | DX: I96 Gangrene, not elsewhere classified (principal); I87.2 Venous insufficiency (chronic) (peripheral); L97.822 Non-pressure chronic ulcer of other part of left lower leg with fat layer exposed; L97.311 Non-pressure chronic ulcer of right ankle limited to breakdown of skin; Z87.891 Personal history of nicotine dependence | CPT/HCPCS: 11042; 11045; A6251; A6253 ==

== ENCOUNTER 2021-04-19 10:41 | Outpatient (CLI) | payer MEDICARE, MEDICAID, SELFPAY | END 2021-04-19 10:42 | disposition home or self-care (01) | LOC: WOUND 10:42 | PROVIDERS: PCP Family Medicine; Visit Provider Nurse Practitioner Family | DX: I96 Gangrene, not elsewhere classified (principal); I87.2 Venous insufficiency (chronic) (peripheral); L97.822 Non-pressure chronic ulcer of other part of left lower leg with fat layer exposed; L97.311 Non-pressure chronic ulcer of right ankle limited to breakdown of skin; Z87.891 Personal history of nicotine dependence | CPT/HCPCS: 11042; 11045; A6252; A6253 ==

== ENCOUNTER 2021-05-10 09:23 | Outpatient (CLI) | payer MEDICARE, MEDICAID, SELFPAY | END 2021-05-10 09:24 | disposition home or self-care (01) | LOC: WOUND 09:24 | PROVIDERS: PCP Family Medicine; Visit Provider Emergency Medicine | DX: I96 Gangrene, not elsewhere classified (principal); I87.2 Venous insufficiency (chronic) (peripheral); L97.822 Non-pressure chronic ulcer of other part of left lower leg with fat layer exposed; L97.311 Non-pressure chronic ulcer of right ankle limited to breakdown of skin; Z87.891 Personal history of nicotine dependence | CPT/HCPCS: 11042; 11045; 99212 ==

== ENCOUNTER 2021-05-24 09:42 | Outpatient (CLI) | payer MEDICARE, MEDICAID, SELFPAY | END 2021-05-24 09:43 | disposition home or self-care (01) | LOC: WOUND 09:43 | PROVIDERS: PCP Family Medicine; Visit Provider Emergency Medicine | DX: I96 Gangrene, not elsewhere classified (principal); I87.2 Venous insufficiency (chronic) (peripheral); L97.822 Non-pressure chronic ulcer of other part of left lower leg with fat layer exposed; L97.311 Non-pressure chronic ulcer of right ankle limited to breakdown of skin; Z87.891 Personal history of nicotine dependence | CPT/HCPCS: 11042; 11045; 99212 ==

== ENCOUNTER 2021-06-07 08:22 | Outpatient (CLI) | payer MEDICARE, MEDICAID, SELFPAY | END 2021-06-07 08:23 | disposition home or self-care (01) | LOC: WOUND 08:24 | PROVIDERS: PCP Family Medicine; Visit Provider Nurse Practitioner Family | DX: I96 Gangrene, not elsewhere classified (principal); I87.2 Venous insufficiency (chronic) (peripheral); L97.822 Non-pressure chronic ulcer of other part of left lower leg with fat layer exposed; L97.311 Non-pressure chronic ulcer of right ankle limited to breakdown of skin; Z87.891 Personal history of nicotine dependence | CPT/HCPCS: 11042; 11045; A6197 ==

== ENCOUNTER 2021-06-14 09:17 | Outpatient (CLI) | payer MEDICARE, MEDICAID, SELFPAY | END 2021-06-14 09:18 | disposition home or self-care (01) | PROVIDERS: PCP Family Medicine; Visit Provider Emergency Medicine | DX: I87.2 Venous insufficiency (chronic) (peripheral) (principal); I96 Gangrene, not elsewhere classified; L97.822 Non-pressure chronic ulcer of other part of left lower leg with fat layer exposed; L97.311 Non-pressure chronic ulcer of right ankle limited to breakdown of skin; Z87.891 Personal history of nicotine dependence; R22.43 Localized swelling, mass and lump, lower limb, bilateral; L97.825 Non-pressure chronic ulcer of other part of left lower leg with muscle involvement without evidence of necrosis | CPT/HCPCS: 93970; A6197 ==

== ENCOUNTER 2021-06-14 10:28 | Outpatient (CLI) | payer MEDICARE, MEDICAID, SELFPAY ==
--- NOTE | 2021-06-14 10:40 | USCV_ITS ---
Casey Reeves Age: 81 Gender: M : 1940 Exam Date: 06/14/2021 10:58 Ordering Phys: Kaylan Rooney DO Technologist: CAROLYN [place] [facility] [place]ication: BLE SWELLING HISTORY: Lower extremity swelling. PROCEDURES: Venous duplex imaging was performed in bilateral lower extremities. The following venous structures were evaluated: common femoral vein, profunda vein, proximal portion of the greater saphenous vein, superficial femoral vein, and the popliteal vein. In addition, the posterior tibial and peroneal trunk were evaluated. Serial compression, augmentation maneuvers, and spectral Doppler flow evaluation were performed. FINDINGS: No evidence of DVT seen in any vessel visualized at this time. Examination was technically limited due to body habitus. CONCLUSIONS No evidence of right lower extremity DVT. No evidence of left lower extremity DVT. Davide Zepeda MD (Electronically Signed) Final Date: 15 June 2021 12:28 S
== END 2021-06-14 10:29 | disposition home or self-care (01) ==
PROVIDERS: PCP Family Medicine; Visit Provider Emergency Medicine
DX: R22.43 Localized swelling, mass and lump, lower limb, bilateral (principal); I87.2 Venous insufficiency (chronic) (peripheral); L97.825 Non-pressure chronic ulcer of other part of left lower leg with muscle involvement without evidence of necrosis
CPT/HCPCS: 93970

== ENCOUNTER 2021-06-27 08:39 | Outpatient (CLI) | payer MEDICARE, MEDICAID, SELFPAY ==
--- NOTE | 2021-06-27 08:42 | USCV_ITS ---
Casey Reeves Age: 81 Gender: M : 1940 Exam Date: 06/27/2021 09:10 Ordering Phys: Kaylan Rooney DO Technologist: CAROLYN [place] [facility] [place] Indication: HISTORY: Lower extremity swelling. Lower extremity edema. History of deep venous thrombosis. Patient has. Ulcers. PROCEDURES: Venous duplex imaging was performed in bilateral lower extremities. The following venous structures were evaluated: common femoral vein, profunda vein, proximal portion of the greater saphenous vein, superficial femoral vein, and the popliteal vein. In addition, the posterior tibial veins were evaluated. Serial compression, augmentation maneuvers, and spectral Doppler flow evaluation were performed. Grayscale and doppler images were obtained. Reflux maneuvers were performed with patient in the standing position. FINDINGS: PT GOOD CANDIDATE FOR LEFT VENOUS ABLATION Significant venous reflux was noted in all the segments of the greater saphenous vein and the small saphenous vein on the left side. The below-knee venous segments where found to be less than 1 cm from the surface CONCLUSIONS 1. No evidence of DVT in the above-mentioned identifiable veins. 2. On the right side, significant venous reflux of greater than 1000 ms was noted in the femoral and popliteal veins. 3. Significant venous reflux of greater than 500 ms were noted at the right saphenofemoral junction and also at the below-knee segment of the greater saphenous vein. The below-knee segment of the greater saphenous vein is probably too superficial for ablation. 4. Significant venous reflux of greater than 1000 ms was noted at the left common femoral vein. 5. Significant venous reflux of greater than 500 ms were noted throughout the greater saphenous vein and small saphenous vein segments on the left side, including the saphenofemoral junction. The below-knee segment of the greater saphenous vein and the small saphenous vein segments were found to be less than 1 cm from the surface. Except for the distal saphenous vein segment, all other GSV segments were found to be more than 0.[address] Yomi Nielsen MD [facility] (Electronically Signed) Final Date: 29 June 2021 14:16 S
== END 2021-06-27 08:40 | disposition home or self-care (01) ==
LOC: RAD 08:40
PROVIDERS: PCP Family Medicine; Visit Provider Emergency Medicine
DX: I87.2 Venous insufficiency (chronic) (peripheral) (principal); L97.825 Non-pressure chronic ulcer of other part of left lower leg with muscle involvement without evidence of necrosis
CPT/HCPCS: 93970

== ENCOUNTER 2021-06-28 08:07 | Outpatient (CLI) | payer MEDICARE, MEDICAID, SELFPAY | END 2021-06-28 08:08 | disposition home or self-care (01) | LOC: WOUND 08:09 | PROVIDERS: PCP Family Medicine; Visit Provider Emergency Medicine | DX: I87.2 Venous insufficiency (chronic) (peripheral) (principal); L97.822 Non-pressure chronic ulcer of other part of left lower leg with fat layer exposed; L97.311 Non-pressure chronic ulcer of right ankle limited to breakdown of skin; I96 Gangrene, not elsewhere classified; Z87.891 Personal history of nicotine dependence | CPT/HCPCS: 11042; 11045; 87070; 87176; 87205 ==

== ENCOUNTER 2021-07-02 08:36 | Outpatient (CLI) | payer MEDICARE, MEDICAID, SELFPAY ==
--- NOTE | 2021-07-02 08:58 | USCV_ITS ---
Casey Reeves Age: 81 Gender: M : 1940 Exam Date: 07/02/2021 09:42 Ordering Phys: Kaylan Rooney DO Technologist: Exam Location: [facility] – [place] Indication: Non pressure ulcer RIGHT LEFT Brachial 118.00 mmHg Brachial 136.00 mmHg Pressure (mmHg) Waveform Pressure (mmHg) Waveform 148.00 Below Knee 197.00 125.00 HEALTH SOCIAL WORK PROFESSOR 121.00 150.00 DPA 174.00 1.10 Ankle/Brachial Index 1.28 149.00 Pre-Exercise Toe Pressure 162.00 1.10 Pre-Exercise Toe/Brachial Index 1.19 FINDINGS Rt thigh and Lt thigh >220 Normal resting ABIs bilaterally Normal resting TBI bilaterally PVR waveforms showing no significant stenosis, some blunting of the dicrotic notch CONCLUSIONS Normal resting ABIs and TBIs suggesting no significant arterial obstruction, bilaterally Some features of extensive arterial sclerosis Dr Yomi Nielsen MD [facility] (Electronically Signed) Final Date: 05 July 2021 00:41 S
== END 2021-07-02 08:37 | disposition home or self-care (01) ==
LOC: RAD 08:37
PROVIDERS: PCP Family Medicine; Visit Provider Emergency Medicine
DX: I87.2 Venous insufficiency (chronic) (peripheral) (principal); L97.825 Non-pressure chronic ulcer of other part of left lower leg with muscle involvement without evidence of necrosis
CPT/HCPCS: 93923

== ENCOUNTER 2021-07-05 08:10 | Outpatient (CLI) | payer MEDICARE, MEDICAID, SELFPAY | END 2021-07-05 08:11 | disposition home or self-care (01) | LOC: WOUND 08:14 | PROVIDERS: PCP Family Medicine; Visit Provider Nurse Practitioner Family | DX: I87.2 Venous insufficiency (chronic) (peripheral) (principal); L97.823 Non-pressure chronic ulcer of other part of left lower leg with necrosis of muscle; L97.311 Non-pressure chronic ulcer of right ankle limited to breakdown of skin; Z87.891 Personal history of nicotine dependence | CPT/HCPCS: 11042; 11045; A6197 ==

== ENCOUNTER 2021-07-12 08:15 | Outpatient (CLI) | payer MEDICARE, MEDICAID, SELFPAY | END 2021-07-12 08:16 | disposition home or self-care (01) | LOC: WOUND 08:16 | PROVIDERS: PCP Family Medicine; Visit Provider Nurse Practitioner Family | DX: L97.823 Non-pressure chronic ulcer of other part of left lower leg with necrosis of muscle (principal); L97.311 Non-pressure chronic ulcer of right ankle limited to breakdown of skin; I87.2 Venous insufficiency (chronic) (peripheral) | CPT/HCPCS: 11042; 11045 ==

== ENCOUNTER → 2021-07-19 07:57 | Outpatient (BNVA) | payer MEDICARE, MEDICAID, SELFPAY | PROVIDERS: PCP Family Medicine; Visit Provider Nurse Practitioner Family | DX: I87.2 Venous insufficiency (chronic) (peripheral) (principal); I96 Gangrene, not elsewhere classified; L97.822 Non-pressure chronic ulcer of other part of left lower leg with fat layer exposed; L97.311 Non-pressure chronic ulcer of right ankle limited to breakdown of skin | CPT/HCPCS: 11042; 11045 ==

== ENCOUNTER → 2021-07-26 08:37 | Outpatient (BNVA) | payer MEDICARE, MEDICAID, SELFPAY | PROVIDERS: PCP Family Medicine; Visit Provider Nurse Practitioner Family | DX: I87.2 Venous insufficiency (chronic) (peripheral) (principal); I96 Gangrene, not elsewhere classified; L97.422 Non-pressure chronic ulcer of left heel and midfoot with fat layer exposed; L97.311 Non-pressure chronic ulcer of right ankle limited to breakdown of skin; I50.9 Heart failure, unspecified; I99.8 Other disorder of circulatory system | CPT/HCPCS: 11042; 11045; 87070; 87077; 87176; 87186; 87205 ==

== ENCOUNTER → 2021-08-02 08:51 | Outpatient (BNVA) | payer MEDICARE, MEDICAID, SELFPAY | PROVIDERS: PCP Family Medicine; Visit Provider Nurse Practitioner Family | DX: I87.2 Venous insufficiency (chronic) (peripheral) (principal); L97.822 Non-pressure chronic ulcer of other part of left lower leg with fat layer exposed; I96 Gangrene, not elsewhere classified; Z87.891 Personal history of nicotine dependence; L97.311 Non-pressure chronic ulcer of right ankle limited to breakdown of skin | CPT/HCPCS: 99213 ==

== ENCOUNTER 2021-08-02 09:36 | Emergency (ER) | payer MEDICARE, MEDICAID, SELFPAY ==
[2021-08-02 09:54] VITALS: BP 158/75; PULSE 53; RESP 18; TEMP 36.3; O2SAT 99; BMI 33.6
--- NOTE | 2021-08-02 10:02 | XR_ITS ---
WS: [id number] XR chest 1V portable [id number] REASON FOR EXAM: sob FINDINGS: Mild tortuosity the thoracic aorta without aneurysmal dilatation. Mild cardiomegaly. Calcified granulomatous disease bilaterally. No active pulmonary parenchymal or pleural disease. Mild thoracic scoliosis convex left with moderate degenerative spondylosis in the mid and lower thora cic spine. XR/XR chest 1V portable [id number] IMPRESSION: No acute chest abnormality.
--- NOTE | 2021-08-02 10:03 | ECG_ITS ---
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 Measurements Intervals [place] Rate: 53 P: MS: QRS: 108 QRSD: 156 T: 38 QT: 506 QTc: 476 Interpretive Statements ATRIAL FIBRILLATION WITH SLOW VENTRICULAR RESPONSE RIGHT AXIS DEVIATION [QRS AXIS > 100] RIGHT BUNDLE BRANCH BLOCK [120+ ms QRS DURATION, UPRIGHT V1, 40+ ms S IN I/aVL/V4/V5/V6] SEPTAL MYOCARDIAL INFARCTION , PROBABLY OLD [40+ ms Q WAVE IN V1/V2] No previous ECG available for comparison Electronically Signed On 08-02-2021 16:11:51 CDT by Mich Cardenas M.D. [email or web address]
[2021-08-02 10:09] VITALS: BP 129/60; PULSE 58; RESP 16; O2SAT 100
--- NOTE | 2021-08-02 10:27 | W.ED.SOB ---
Documented by User: MILDRED Lua 08/02/21 16:39 HPI - SOB/Dyspnea General: Chief Complaint: Shortness of Breath/Dyspnea Stated Complaint: SOB Time Seen by Provider: 08/02/21 10:02 History of Present Illness: HPI Narrative: Patient is a 81-year-old male comes to the ED with shortness of breath. Past medical history of hypertension, chronic peripheral venous insufficiency and chronic wound on bilateral feet and ankles. Phas had cardiac stents placed in the past.patient says he has been having worsening shortness of breath for the past 3 months. Over the past couple weeks his shortness of breath has continued to get worse. Shortness of breath worsens with exertion and when he is up ambulating. Denies any chest pain, cough or hemoptysis. He endorses having some abdominal swelling and bilateral lower extremity swelling. He was put on some Lasix recently by his primary care provider but he ran out medication couple days ago. He states that the Lasix did help with his swelling but has not helped his shortness of breath. history of COPD or CHF. He also has some chronic bilateral ankle and foot wounds that he sees wound care clinic weekly. Denies any acute change in wounds and saw wound care clinic this morning just before coming to the ED. Associated symptoms: Deny abdominal pain, chest pain, fever(s), nausea, orthopnea, palpitations or vomiting Review of Systems Const: Denies: fever(s), chills or fatigue Eyes: Denies: change in vision or eye discomfort ENMT: Denies: throat pain, odynophagia, nasal discharge or nasal congestion Card: Reports: edema (Bilateral leg), swelling of feet/ankles and dyspnea on exertion; Denies: chest pain, palpitations or orthopnea Resp: Reports: dyspnea; Denies: productive cough or non-productive cough GI: Denies: abdominal pain, nausea, vomiting, diarrhea, constipation or hematochezia : Denies: flank pain, difficulty urinating, dysuria or hematuria Musc: Denies: neck pain, back pain or extremity swelling Skin/Breast: Reports: lesions (Chronic wounds on bilateral feet and ankles.); Denies: rash or new lesions Neuro: Denies: headache(s), numbness in extremities or weakness in extremities [facility] ED PFSH: Medical History HTN (hypertension) Ischemia of extremity Ischemia of lower extremity Umbilical hernia Surgical History History of coronary artery stent placement Family History Denies family history of Diabetes CAD (coronary artery disease) Clotting disorder Dementia Hyperlipidemia Psychiatric illness Chronic kidney disease (CKD) Suicide Anesthesia complication Bleeding disorder Family history of premature coronary artery disease Lung disease Cancer Hypertension Stroke Social History Smoking and tobacco status: never smoked Quit status (tobacco): has quit using tobacco Alcohol intake: never Physical Exam Const: COMMON NORMALS: patient oriented x3 and alert GENERAL APPEARANCE: cooperative HENMT: COMMON NORMALS: normocephalic HEAD & SCALP: normocephalic MOUTH: Normal oral and palatal mucosa present THROAT: posterior oropharynx normal and uvula midline Neck/C-Spine: COMMON NORMALS: supple GENERAL: Yes normal visual inspection Resp: COMMON NORMALS: normal respiratory effort, No retractions, No use of accessory muscles and clear to auscultation bilaterally AUSCULTATION: clear to auscultation bilaterally Cardio: COMMON NORMALS: regular rate, regular rhythm, S1 normal heart sound present, S2 normal heart sound present, No gallops present (Cardio), No clicks present (Cardio), No murmurs present (Cardio) and Peripheral pulses 2+ throughout RATE: regular rate RHYTHM: regular rhythm HEART SOUNDS: S1 normal heart sound present and S2 normal heart sound present PERIPHERAL PULSES: Peripheral pulses 2+ throughout GI: COMMON NORMALS: Normal to inspection, nondistended, normoactive bowel sounds present, Soft to palpation, non-tender and no masses PALPATION: Yes Soft to palpation : COMMON NORMALS: Yes no CVA tenderness BLADDER/KIDNEY EXAM: Yes no CVA tenderness Back/Pelvis: COMMON NORMALS: no CVA tenderness Extremity: GENERAL: Yes normal exam except as noted and Yes edema (Bilateral lower extremity 2+ pitting edema extends up into thighs) Neuro: COMMON NORMALS: patient oriented x3 and moves all extremities SENSORIUM/ORIENTATION: Yes alert Skin: GENERAL SKIN EXAM: dry skin Course ED course: I went in multiple times to patient's room and discussed that we would like to have him admitted and worked up for acute exacerbation of heart failure. I told him the risks of leaving AMA and not being admitted. Patient was adamant that he will not be admitted and wants to go home and will sign AMA discharge paperwork. I discussed patient with Dr. Velázquez and he also went in and talked with and tried to convince him to be admitted but patient still continued to refuse admission. I went in and talk with patient again after he spoke with Dr. Velázquez I told him I can get respiratory therapy to come down to do a home eval. patient said he wants to go now and does not want to get home O2 eval done before discharge. He will sign AMA paperwork. I told patient I will send him home with a prescription for Lasix and he informed me that he does have an appointment with a supervisor cold rolling on August 07. Vital Signs: Vital signs: Vital Signs Temperature 97.4 F L 08/02/21 09:54 Pulse Rate 61 08/02/21 14:18 Respiratory Rate 16 08/02/21 14:18 Blood Pressure 139/70 08/02/21 14:18 Pulse Oximetry 95 08/02/21 14:18 MDM - SOB/Dyspnea Medical Decision Making Patient is a 81-year-old male comes to the ED with shortness of breath. Past medical history of hypertension, chronic peripheral venous insufficiency and bilateral chronic wounds on ankles and feet that are being managed by wound care. symptoms have been going on for the past 3 months and have continued to progress. He has shortness of breath with exertion. Denies any chest pain. He also has been having some bilateral lower extremity edema as well. He was taking some Lasix as prescribed by his PCP but ran out of them recently. Denies any history of COPD or heart failure. Patient's pulse has been around 53-55 here in the ED. Exam shows 2+ pitting edema bilaterally that goes all the way up into the thighs. EKG shows A. fib with slow ventricular response. Hemoglobin 10.3 but the rest of CBC and CMP is unremarkable. D-dimer elevated at 2.28. BNP elevated and is 1637. First troponin was 18 and second troponin was 18.42. chest x-ray showed no acute findings. CT of chest showed a few tiny filling defects in the right lower lobe posterior medial pulmonary artery compatible with a PE. patient was given IV Lasix while here in the ED. I discussed case with Dr. Kendall we both agreed patient should be admitted. I went in multiple times to patient's room and discussed that we would like to have him admitted and worked up for acute exacerbation of heart failure. I told him the risks of leaving AMA and not being admitted. Patient was adamant that he will not be admitted and wants to go home and will sign AMA discharge paperwork. I discussed patient with Dr. Velázquez and he also went in and talked with and tried to convince him to be admitted but patient still continued to refuse admission. I went in and talk with patient again after he spoke with Dr. Velázquez I told him I can get respiratory therapy to come down to do a home eval. patient said he wants to go now and does not want to get home O2 eval done before discharge. He will sign AMA paperwork. I told patient I will send him home with a prescription for Lasix and he informed me that he does have an appointment with a supervisor cold rolling on August 07. He was given strict return to ED precautions. Lab Data I reviewed the patient's lab results. : 08/02/21 10:53 08/02/21 10:53 Labs/Radiology: Radiology Impressions Chest X-Ray 08/02/21 10:02 IMPRESSION: No acute chest abnormality. Chest CTA 08/02/21 11:29 IMPRESSION: 1. A few tiny filling defects in the RIGHT lower lobe posterior medial pulmonary artery compatible with pulmonary embolus. 2. Proximal main pulmonary arteries are normal. 3. Moderate chronic emphysematous changes. No acute pulmonary infiltrates. 4. Slight RIGHT basilar atelectasis. 5. Normal caliber thoracic aorta. Aortic calcification. Coronary calcification. Notified MILDRED Lua at 08/02/2021 1:14 PM. Laboratory Results WBC 7.4 10^3/uL (4.0-10.0) 08/02/21 10:53 RBC 4.95 10^6/uL (4.1-5.3) 08/02/21 10:53 Hgb 10.3 g/dL (11.7-16.6) L 08/02/21 10:53 Hct 35.9 % (42.0-52.0) L 08/02/21 10:53 MCV 72.5 fl (80-94) L 08/02/21 10:53 MCH 20.8 pg (28.0-34.0) L 08/02/21 10:53 MCHC 28.7 g/dL (30.0-36.0) L 08/02/21 10:53 RDW 18.9 % (12.1-15.1) H 08/02/21 10:53 Plt Count 191 10^3/cmm (130-400) 08/02/21 10:53 MPV 9.5 fL (7.4-10.4) 08/02/21 10:53 Neut % (Auto) 67.8 % 08/02/21 10:53 Lymph % (Auto) 20.2 % 08/02/21 10:53 [place] % (Auto) 8.4 % 08/02/21 10:53 Eos % (Auto) 2.8 % 08/02/21 10:53 Baso % (Auto) 0.5 % 08/02/21 10:53 Neut # (Auto) 4.99 10^3/uL (1.8-7.7) 08/02/21 10:53 Lymph # (Auto) 1.5 10^3/uL (0.8-4.8) 08/02/21 10:53 [place] # (Auto) 0.6 10^3/uL (0.2-0.9) 08/02/21 10:53 Eos # (Auto) 0.2 10^3/uL (0.0-0.8) 08/02/21 10:53 Baso # (Auto) 0.0 10^3/uL (0.0-0.1) 08/02/21 10:53 Nucleated RBC % (auto) 0 % 08/02/21 10:53 Nucleated RBCs # 0.0 /100WBC 08/02/21 10:53 D-Dimer 2.28 ug/mIFEU (0-0.59) H 08/02/21 10:53 Sodium 134 mmol/L (136-145) L 08/02/21 10:53 Potassium 4.7 mmol/L (3.5-5.1) 08/02/21 10:53 Chloride 102 mmol/L (98-107) 08/02/21 10:53 Carbon Dioxide 23 mmol/L (22-29) 08/02/21 10:53 Anion Gap 13.7 (5-19) 08/02/21 10:53 BUN 23 mg/dL (8-23) 08/02/21 10:53 Creatinine 0.9 mg/dL (0.7-1.2) 08/02/21 10:53 GFR Calculation Not Reportable 08/02/21 10:53 Glucose 129 mg/dL (65-115) H 08/02/21 10:53 Calculated Osmolality 283 mOsm/kg (285-295) L 08/02/21 10:53 Calcium 9.0 mg/dL (8.5-10.5) 08/02/21 10:53 Total Bilirubin 0.6 mg/dL (0.15-1.2) 08/02/21 10:53 AST 28 U/L (0-40) 08/02/21 10:53 ALT 25 U/L (0-41) 08/02/21 10:53 Alkaline Phosphatase 71 IU/L (40-130) 08/02/21 10:53 Troponin T Baseline 18 ng/L (0-15) H 08/02/21 10:53 Troponin T 120 Minute 18.42 ng/L (0-15) H 08/02/21 13:09 Delta Troponin T 0.42 ABS# (0-10) 08/02/21 13:09 NT-Pro-B Natriuret Pep 1637 pg/mL (0-450) H 08/02/21 10:53 Total Protein 6.8 g/dL (6.6-8.7) 08/02/21 10:53 Albumin 3.6 g/dL (3.5-5.2) 08/02/21 10:53 Globulin 3.2 g/dL (1.3-4.6) 08/02/21 10:53 EKG Data EKG 1: EKG Interpretation Date: 08/02/21 Interpretation: Rate 53 bpm, patient appears to have A. fib with slow ventricular response. No ST segment elevation or depression noted. Discharge Plan Discharge Patient Disposition: Left Against Medical Advice Clinical Impression: Acute exacerbation of CHF (congestive heart failure) Qualifiers: Heart failure type: unspecified Qualified Code(s): I50.9 - Heart failure, unspecified Condition: Stable Prescriptions: New furosemide 40 mg tablet 40 mg PO DAILY 30 Days Qty: 30 0RF No Action clopidogrel [Plavix] 75 mg tablet 75 mg PO DAILY 0RF lisinopril 5 mg tablet 5 mg PO DAILY 0RF metoprolol tartrate 25 mg tablet 50 mg PO DAILY 0RF simvastatin 80 mg tablet 80 mg PO ONCE 0RF Eliquis 5 mg Tablet 5 mg PO BID 0RF pantoprazole 40 mg tablet,delayed release (DR/EC) 40 mg PO DAILY 0RF Referrals: Иван Lopez [Primary Care Provider] - Discharge Diet: Regular Discharge Activity: Increase activity as tolerated Activity Restrictions/Additional Instructions: Follow-up with supervisor cold rolling at your scheduled appointment next August 07. Also contact your PCP to get appointment set up with them in the next 3 to 5 days for reevaluation. Take medications as prescribed. Return to the ER or your medical provider if condition worsens. Please read and understand discharge instructions. Thank you for choosing [facility] for your healthcare needs today. Please realize this is an emergency room and that we are providing you with a medical screening exam and this may not be complete and all inclusive of all the testing and or work up that you may need to determine your ailment or severity of your illness. It is very important that you follow up as instructed or that you return to the Emergency Department should you have concerns or if your condition changes or worsens in any way. Coding Level of Care Code ED Cray Fishing Hand for Chg Fwd Exam Comprehensive Documented by User: Brayan Velázquez MD 08/06/21 00:08 HPI - SOB/Dyspnea General: Chief Complaint: Shortness of Breath/Dyspnea Stated Complaint: SOB Time Seen by Provider: 08/02/21 10:02 [facility] ED PFSH: Medical History HTN (hypertension) Ischemia of extremity Ischemia of lower extremity Umbilical hernia Surgical History History of coronary artery stent placement Family History Denies family history of Diabetes CAD (coronary artery disease) Clotting disorder Dementia Hyperlipidemia Psychiatric illness Chronic kidney disease (CKD) Suicide Anesthesia complication Bleeding disorder Family history of premature coronary artery disease Lung disease Cancer Hypertension Stroke Social History Smoking and tobacco status: never smoked Quit status (tobacco): has quit using tobacco Alcohol intake: never Course Vital Signs: Vital signs: Vital Signs Temperature 97.4 F L 08/02/21 09:54 Pulse Rate 61 08/02/21 14:18 Respiratory Rate 16 08/02/21 14:18 Blood Pressure 139/70 08/02/21 14:18 Pulse Oximetry 95 08/02/21 14:18 MDM - SOB/Dyspnea Medical Decision Making Patient is a 81-year-old male comes to the ED with shortness of breath. Past medical history of hypertension, chronic peripheral venous insufficiency and bilateral chronic wounds on ankles and feet that are being managed by wound care. symptoms have been going on for the past 3 months and have continued to progress. He has shortness of breath with exertion. Denies any chest pain. He also has been having some bilateral lower extremity edema as well. He was taking some Lasix as prescribed by his PCP but ran out of them recently. Denies any history of COPD or heart failure. Patient's pulse has been around 53-55 here in the ED. Exam shows 2+ pitting edema bilaterally that goes all the way up into the thighs. EKG shows A. fib with slow ventricular response. Hemoglobin 10.3 but the rest of CBC and CMP is unremarkable. D-dimer elevated at 2.28. BNP elevated and is 1637. First troponin was 18 and second troponin was 18.42. chest x-ray showed no acute findings. CT of chest showed a few tiny filling defects in the right lower lobe posterior medial pulmonary artery compatible with a PE. patient was given IV Lasix while here in the ED. I discussed case with Dr. Kendall we both agreed patient should be admitted. I went in multiple times to patient's room and discussed that we would like to have him admitted and worked up for acute exacerbation of heart failure. I told him the risks of leaving AMA and not being admitted. Patient was adamant that he will not be admitted and wants to go home and will sign AMA discharge paperwork. I discussed patient with Dr. Velázquez and he also went in and talked with and tried to convince him to be admitted but patient still continued to refuse admission. I went in and talk with patient again after he spoke with Dr. Velázquez I told him I can get respiratory therapy to come down to do a home eval. patient said he wants to go now and does not want to get home O2 eval done before discharge. He will sign AMA paperwork. I told patient I will send him home with a prescription for Lasix and he informed me that he does have an appointment with a supervisor cold rolling on August 07. He was given strict return to ED precautions. I discussed this case with MILDRED Lua. I have reviewed documentation, labs, imaging. I personally saw and evaluated the patient. I discussed at length the reason for recommendation of admission to reinforce the previous conversations that Conrad had already had with the patient. I answered all questions. Based on my interaction with the patient I do believe that he has capacity to make healthcare decisions, however ill advised. He understands that he may return to the emergency department any time for any reason. Brayan Velázquez MD Emergency Medicine Lab Data : 08/02/21 10:53 08/02/21 10:53 Labs/Radiology: Radiology Impressions Chest X-Ray 08/02/21 10:02 IMPRESSION: No acute chest abnormality. Chest CTA 08/02/21 11:29 IMPRESSION: 1. A few tiny filling defects in the RIGHT lower lobe posterior medial pulmonary artery compatible with pulmonary embolus. 2. Proximal main pulmonary arteries are normal. 3. Moderate chronic emphysematous changes. No acute pulmonary infiltrates. 4. Slight RIGHT basilar atelectasis. 5. Normal caliber thoracic aorta. Aortic calcification. Coronary calcification. Notified MILDRED Lua at 08/02/2021 1:14 PM. Laboratory Results WBC 7.4 10^3/uL (4.0-10.0) 08/02/21 10:53 RBC 4.95 10^6/uL (4.1-5.3) 08/02/21 10:53 Hgb 10.3 g/dL (11.7-16.6) L 08/02/21 10:53 Hct 35.9 % (42.0-52.0) L 08/02/21 10:53 MCV 72.5 fl (80-94) L 08/02/21 10:53 MCH 20.8 pg (28.0-34.0) L 08/02/21 10:53 MCHC 28.7 g/dL (30.0-36.0) L 08/02/21 10:53 RDW 18.9 % (12.1-15.1) H 08/02/21 10:53 Plt Count 191 10^3/cmm (130-400) 08/02/21 10:53 MPV 9.5 fL (7.4-10.4) 08/02/21 10:53 Neut % (Auto) 67.8 % 08/02/21 10:53 Lymph % (Auto) 20.2 % 08/02/21 10:53 [place] % (Auto) 8.4 % 08/02/21 10:53 Eos % (Auto) 2.8 % 08/02/21 10:53 Baso % (Auto) 0.5 % 08/02/21 10:53 Neut # (Auto) 4.99 10^3/uL (1.8-7.7) 08/02/21 10:53 Lymph # (Auto) 1.5 10^3/uL (0.8-4.8) 08/02/21 10:53 [place] # (Auto) 0.6 10^3/uL (0.2-0.9) 08/02/21 10:53 Eos # (Auto) 0.2 10^3/uL (0.0-0.8) 08/02/21 10:53 Baso # (Auto) 0.0 10^3/uL (0.0-0.1) 08/02/21 10:53 Nucleated RBC % (auto) 0 % 08/02/21 10:53 Nucleated RBCs # 0.0 /100WBC 08/02/21 10:53 D-Dimer 2.28 ug/mIFEU (0-0.59) H 08/02/21 10:53 Sodium 134 mmol/L (136-145) L 08/02/21 10:53 Potassium 4.7 mmol/L (3.5-5.1) 08/02/21 10:53 Chloride 102 mmol/L (98-107) 08/02/21 10:53 Carbon Dioxide 23 mmol/L (22-29) 08/02/21 10:53 Anion Gap 13.7 (5-19) 08/02/21 10:53 BUN 23 mg/dL (8-23) 08/02/21 10:53 Creatinine 0.9 mg/dL (0.7-1.2) 08/02/21 10:53 GFR Calculation Not Reportable 08/02/21 10:53 Glucose 129 mg/dL (65-115) H 08/02/21 10:53 Calculated Osmolality 283 mOsm/kg (285-295) L 08/02/21 10:53 Calcium 9.0 mg/dL (8.5-10.5) 08/02/21 10:53 Total Bilirubin 0.6 mg/dL (0.15-1.2) 08/02/21 10:53 AST 28 U/L (0-40) 08/02/21 10:53 ALT 25 U/L (0-41) 08/02/21 10:53 Alkaline Phosphatase 71 IU/L (40-130) 08/02/21 10:53 Troponin T Baseline 18 ng/L (0-15) H 08/02/21 10:53 Troponin T 120 Minute 18.42 ng/L (0-15) H 08/02/21 13:09 Delta Troponin T 0.42 ABS# (0-10) 08/02/21 13:09 NT-Pro-B Natriuret Pep 1637 pg/mL (0-450) H 08/02/21 10:53 Total Protein 6.8 g/dL (6.6-8.7) 08/02/21 10:53 Albumin 3.6 g/dL (3.5-5.2) 08/02/21 10:53 Globulin 3.2 g/dL (1.3-4.6) 08/02/21 10:53 Discharge Plan Discharge Patient Disposition: Left Against Medical Advice Clinical Impression: Acute exacerbation of CHF (congestive heart failure) Qualifiers: Heart failure type: unspecified Qualified Code(s): I50.9 - Heart failure, unspecified Condition: Stable Prescriptions: New furosemide 40 mg tablet 40 mg PO DAILY 30 Days Qty: 30 0RF No Action clopidogrel [Plavix] 75 mg tablet 75 mg PO DAILY 0RF lisinopril 5 mg tablet 5 mg PO DAILY 0RF metoprolol tartrate 25 mg tablet 50 mg PO DAILY 0RF simvastatin 80 mg tablet 80 mg PO ONCE 0RF Eliquis 5 mg Tablet 5 mg PO BID 0RF pantoprazole 40 mg tablet,delayed release (DR/EC) 40 mg PO DAILY 0RF Referrals: Иван Lopez [Primary Care Provider] - Discharge Diet: Regular Discharge Activity: Increase activity as tolerated Activity Restrictions/Additional Instructions: Follow-up with supervisor cold rolling at your scheduled appointment next August 07. Also contact your PCP to get appointment set up with them in the next 3 to 5 days for reevaluation. Take medications as prescribed. Return to the ER or your medical provider if condition worsens. Please read and understand discharge instructions. Thank you for choosing [facility] for your healthcare needs today. Please realize this is an emergency room and that we are providing you with a medical screening exam and this may not be complete and all inclusive of all the testing and or work up that you may need to determine your ailment or severity of your illness. It is very important that you follow up as instructed or that you return to the Emergency Department should you have concerns or if your condition changes or worsens in any way. Coding Level of Care Code ED Cray Fishing Hand for Kaylene Fwmoody Exam Comprehensive
[2021-08-02 10:40] VITALS: BP 133/79; PULSE 55; RESP 16; O2SAT 92
[2021-08-02 11:19] LABS: Basophils % 0.5 %; Eosinophils # 0.2 10^3/uL (0.0-0.8); Eosinophils % 2.8 %; Hematocrit 35.9 % (42.0-52.0); Hemoglobin 10.3 g/dL (11.7-16.6); Lymphocytes # 1.5 10^3/uL (0.8-4.8); Lymphocytes % 20.2 %; Mean Corpuscular HGB Conc 28.7 g/dL (30.0-36.0); Mean Corpuscular Hemoglobin 20.8 pg (28.0-34.0); Mean Corpuscular Volume 72.5 fl (80-94); Mean Platelet Volume 9.5 fL (7.4-10.4); Monocytes # 0.6 10^3/uL (0.2-0.9); Monocytes % 8.4 %; Neutrophils # 4.99 10^3/uL (1.8-7.7); Neutrophils % 67.8 %; Nucleated Red Blood Cells % 0 %; Platelet Count 191 10^3/cmm (130-400); Red Blood Count 4.95 10^6/uL (4.1-5.3); Red Cell Distribution Width 18.9 % (12.1-15.1); White Blood Count 7.4 10^3/uL (4.0-10.0)
[2021-08-02 11:24] LABS: D Dimer 2.28 ug/mIFEU (0-0.59)
--- NOTE | 2021-08-02 11:29 | CT_ITS ---
WS: [id number] CTA OF THE CHEST WITH PULMONARY EMBOLISM PROTOCOL TECHNIQUE: High-resolution contrast enhanced CTA of the chest with coronal and sagittal reformatted i mages with pulmonary embolism protocol. MIP images are also reviewed. CLINICAL INFORMATION: sob, elevated d dimer COMPARISON: None. DLP: 608.[address] scans at [facility] use at least one of these dose optimization techniques: automated e xposure control; mA and/or kV adjustment per patient size (includes targeted exams where dose is matc hed to clinical indication); or iterative reconstruction. FINDINGS: Proximal main pulmonary arteries are normal. A few tiny filling defects in the RIGHT lower lobe poste rior medial pulmonary artery compatible with pulmonary embolus. No other suspicious filling defects. Moderate chronic emphysematous changes. Slight RIGHT basilar atelectasis. Normal caliber thoracic aor ta. Aortic and coronary calcification. No mediastinal or hilar lymphadenopathy. No axillary lymphaden opathy. RIGHT adrenal adenoma. Partially visualized LEFT renal cyst. Splenic artery calcification. Slight ref lux into the hepatic veins likely due to CHF. CT/CT angio chest PE protcl [id number] IMPRESSION: 1. A few tiny filling defects in the RIGHT lower lobe posterior medial pulmona ry artery compatible with pulmonary embolus. 2. Proximal main pulmonary arteries are normal. 3. Moderate chronic emphysematous changes. No acute pulmonary infiltrates. 4. Slight RIGHT basilar atelectasis. 5. Normal caliber thoracic aorta. Aortic calcification. Coronary calcification . Notified MILDRED Lua at 08/02/2021 1:14 PM.
[2021-08-02 11:34] LABS: Troponin(5th) Baseline 18 ng/L (0-15)
[2021-08-02 11:43] LABS: Alanine Aminotransferase 25 U/L (0-41); Albumin Level 3.6 g/dL (3.5-5.2); Alkaline Phosphatase 71 IU/L (40-130); Anion Gap 13.7 (5-19); Aspartate Amino Transferase 28 U/L (0-40); Blood Urea Nitrogen 23 mg/dL (8-23); Carbon Dioxide 23 mmol/L (22-29); Chloride 102 mmol/L (98-107); Globulin 3.2 g/dL (1.3-4.6); Glucose 129 mg/dL (65-115); NT Pro B Type Natriuretic Pept 1637 pg/mL (0-450); Osmolality Calculated 283 mOsm/kg (285-295); Potassium 4.7 mmol/L (3.5-5.1); Sodium 134 mmol/L (136-145); Total Bilirubin 0.6 mg/dL (0.15-1.2); Total Protein 6.8 g/dL (6.6-8.7)
[2021-08-02] MEDS: FUROsemide 10 mg/mL SDV 4mL 40 MG IVP (12:05)
[2021-08-02] MEDS: iohexol 350 mg/mL 100 mL Btl IV (12:23)
[2021-08-02 13:41] LABS: Troponin 5 2HR 18.42 ng/L (0-15)
[2021-08-02 13:44] LABS: Troponin 5 2HR Delta 0.42 ABS# (0-10)
[2021-08-02 14:18] VITALS: BP 139/70; PULSE 61; RESP 16; O2SAT 95
== END 2021-08-02 14:15 | disposition left against medical advice (07) ==
PROVIDERS: Emergency Provider Physician Assistant; PCP Family Medicine
DX: I50.9 Heart failure, unspecified (principal); Z53.29 Procedure and treatment not carried out because of patient's decision for other reasons; I70.0 Atherosclerosis of aorta; I10 Essential (primary) hypertension
CPT/HCPCS: 36415; 71045; 71275; 80053; 83880; 84484; 85025; 85378; 93005; 96374; 99213; 99283; J1940; Q9967

== ENCOUNTER 2021-08-09 07:59 | Outpatient (CLI) | payer MEDICARE, MEDICAID, SELFPAY ==
--- NOTE | 2021-08-09 10:47 | PFTS_ITS ---
Date of Study:08/09/21 Date of Dictation: MECHANICS: Forced vital capacity (FVC) is reduced. Forced expiratory volume in one second (FEV1) is reduced. FEV1/FVC is reduced. FLOW VOLUME LOOP: Reduced flow at all lung volumes with significant scooping. LUNG VOLUMES: Not measured DIFFUSING CAPACITY FOR CARBON MONOXIDE: Moderately reduced. INTERPRETATION: The postbronchodilator spirometry is consistent with severe airflow obstruction. There is no significant postbronchodilator response. Lung volumes are not measured. Gas exchange (DLCO) is moderately reduced. MTDD
[2021-08-09 15:05] LABS: Anion Gap 12.3 (5-19); Blood Urea Nitrogen 27 mg/dL (8-23); Calcium 8.7 mg/dL (8.5-10.5); Carbon Dioxide 24 mmol/L (22-29); Chloride 101 mmol/L (98-107); Glucose 145 mg/dL (65-115); NT Pro B Type Natriuretic Pept 1196 pg/mL (0-450); Osmolality Calculated 284 mOsm/kg (285-295); Potassium 4.3 mmol/L (3.5-5.1); Sodium 133 mmol/L (136-145)
== END 2021-08-09 08:00 | disposition home or self-care (01) ==
PROVIDERS: Internal Medicine; PCP Family Medicine; Visit Provider Family Medicine
DX: R06.09 Other forms of dyspnea (principal); R06.02 Shortness of breath; I50.9 Heart failure, unspecified; I99.8 Other disorder of circulatory system; I87.2 Venous insufficiency (chronic) (peripheral); I96 Gangrene, not elsewhere classified; L97.822 Non-pressure chronic ulcer of other part of left lower leg with fat layer exposed; L97.311 Non-pressure chronic ulcer of right ankle limited to breakdown of skin; Z87.891 Personal history of nicotine dependence
CPT/HCPCS: 11042; 11045; 80048; 83880; 94060; 94729; 99214; J7611

== ENCOUNTER → 2021-08-16 08:07 | Outpatient (BNVA) | payer MEDICARE, MEDICAID, SELFPAY | PROVIDERS: PCP Family Medicine; Visit Provider Nurse Practitioner Family | DX: I87.2 Venous insufficiency (chronic) (peripheral) (principal); L97.822 Non-pressure chronic ulcer of other part of left lower leg with fat layer exposed; I96 Gangrene, not elsewhere classified; L97.311 Non-pressure chronic ulcer of right ankle limited to breakdown of skin; Z87.891 Personal history of nicotine dependence | CPT/HCPCS: 11042; 11045 ==

== ENCOUNTER → 2021-08-23 07:58 | Outpatient (BNVA) | payer MEDICARE, MEDICAID, SELFPAY | PROVIDERS: PCP Family Medicine; Visit Provider Nurse Practitioner Family | DX: I87.2 Venous insufficiency (chronic) (peripheral) (principal); L97.822 Non-pressure chronic ulcer of other part of left lower leg with fat layer exposed; L97.311 Non-pressure chronic ulcer of right ankle limited to breakdown of skin; Z87.891 Personal history of nicotine dependence | CPT/HCPCS: 11042; 11045; 87070; 87077; 87176; 87186; 87205; A6252 ==

== ENCOUNTER → 2021-08-30 08:10 | Outpatient (BNVA) | payer MEDICARE, MEDICAID, SELFPAY | PROVIDERS: PCP Family Medicine; Visit Provider Nurse Practitioner Family | DX: I87.2 Venous insufficiency (chronic) (peripheral) (principal); L97.822 Non-pressure chronic ulcer of other part of left lower leg with fat layer exposed; L97.321 Non-pressure chronic ulcer of left ankle limited to breakdown of skin; Z87.891 Personal history of nicotine dependence | CPT/HCPCS: 11042; 11045 ==

== ENCOUNTER → 2021-09-06 08:09 | Outpatient (BNVA) | payer MEDICARE, MEDICAID, SELFPAY | PROVIDERS: PCP Family Medicine; Visit Provider Nurse Practitioner Family | DX: I87.2 Venous insufficiency (chronic) (peripheral) (principal); I96 Gangrene, not elsewhere classified; L97.822 Non-pressure chronic ulcer of other part of left lower leg with fat layer exposed; L97.311 Non-pressure chronic ulcer of right ankle limited to breakdown of skin; Z87.891 Personal history of nicotine dependence | CPT/HCPCS: 11042; 11045 ==

== ENCOUNTER 2021-09-06 09:29 | Outpatient (CLI) | payer MEDICARE, MEDICAID, SELFPAY ==
[2021-09-06 10:35] LABS: Anion Gap 14.4 (5-19); Blood Urea Nitrogen 34 mg/dL (8-23); Calcium 8.8 mg/dL (8.5-10.5); Carbon Dioxide 27 mmol/L (22-29); Chloride 96 mmol/L (98-107); Glucose 142 mg/dL (65-115); NT Pro B Type Natriuretic Pept 1885 pg/mL (0-450); Osmolality Calculated 286 mOsm/kg (285-295); Potassium 4.4 mmol/L (3.5-5.1); Sodium 133 mmol/L (136-145)
== END 2021-09-06 09:30 | disposition home or self-care (01) ==
LOC: LAB 09:36
PROVIDERS: PCP Family Medicine; Visit Provider Internal Medicine
DX: R06.02 Shortness of breath (principal)
CPT/HCPCS: 11042; 11045; 36415; 80048; 83880

== ENCOUNTER 2021-09-11 09:02 | Outpatient (CLI) | payer MEDICARE, MEDICAID, SELFPAY ==
[2021-09-11 09:08] VITALS: BMI 34.9
--- NOTE | 2021-09-11 09:08 | ECG_ITS ---
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 Interpretive Statements NAME OF STUDY: LEXISCAN SESTAMIBI STRESS TEST INDICATION: [Shortness of Breath] Procedure: At the baseline, the blood pressure was 145/63 mmHg with a heart rate of 64 bpm. The electrocardiogram showed atrial fibrillation, right bundle branch block with normal ST and T's. The Lexiscan was infused over a period of 20 seconds. A total of 0.4 mg of Lexiscan was infused. The stress phase was continued for a total of 5 minutes. Heart rate was at the end of stress phase was 65 bpm and a blood pressure of 113/65 mmHg. The EKG at the peak infusion revealed since normal atrial fibrillation with no significant ST-T wave changes. Sestamibi was injected 20 seconds after the Lexiscan infusion. Blood pressure at the end of recovery phase was 111/69 mmHg with a heart rate of 73 bpm. Conclusion: 1. Normal EKG response to Lexiscan infusion 2. No Lexiscan induced chest pain or cardiac arrhythmia. 3. Normal blood pressure and heart rate response. 4. Sestamibi/sestamibi perfusion scan pending; see separate report. Electronically Signed On 10-11-2021 11:42:26 CDT by Maurisio Cooper M.D. [id number]
--- NOTE | 2021-09-11 09:08 | NMCV_ITS ---
NM kenia perf SPECT r/s* [id number] Casey Reeves Age: 81 Gender: M : 1940 Exam Date: 09/11/2021 10:26 Ordering Phys: Maurisio Cooper M.D ([email or web address]) Technologist: MAXWELL Lin Exam Location: [facility] Indications: SHORTNESS OF BREATH STRESS TEST Please [facility] for [facility] IMAGE PROTOCOL Rest/Stress 1 Lexiscan Day Radiopharmaceutical Dose (mCi) Administration Site Administered by Rest: Tc-99m 11.0 IV MAXWELL Bañuelos Sestamibi Stress:Tc-99m 32.4 IV MAXWELL Bañuelos Sestamibi Rest: 11-Sep-2021 60 Discovery 630 Stress: 11-Sep-2021 30 Discovery 630 0.4mg Lexiscan. Supine position only as patient was unable to lay prone. SPECT RESULTS Technical Quality: Excellent Raw Data Analysis: Normal Image Corrections: No attenuation or motion correction applied Summed Stress Score: 21 Summed Rest Score: 23 Summed Difference Score: 0 PERFUSION FINDINGS There is a large sized, mostly fixed perfusion defect in the apical, apical inferior, inferolateral and inferior victoria. This is consistent with large sized prior infarct with small area of malina-infarct ischemia in left circumflex and RCA territory. FUNCTIONAL RESULTS (calculated via Gated SPECT) Stress Image LV EF (%): 41 Stress EDV (mL):212 TID: 1 Stress ESV (mL):125 FUNCTIONAL FINDINGS: LV systolic function is mild to moderately reduced IMPRESSIONS 1. Abnormal myocardial perfusion imaging with large sized prior infarct and small area of malina-infarct ischemia in RCA and left circumflex artery territory 2. LV systolic function is mild to moderately reduced Maurisio Cooper MD (Electronically Signed) Final Date: 16 Sep 2021 19:20 S
[2021-09-11] MEDS: regadenoson 0.4 Mg/5 ml Syringe IVP (11:10)
[2021-09-11 11:57] VITALS: BP 114/65; PULSE 63
== END 2021-09-11 09:03 | disposition home or self-care (01) ==
PROVIDERS: PCP Family Medicine; Visit Provider Internal Medicine
DX: R06.02 Shortness of breath (principal)
CPT/HCPCS: 78452; 93017; A9500; J2785

== ENCOUNTER → 2021-09-13 08:04 | Outpatient (BNVA) | payer MEDICARE, MEDICAID, SELFPAY | PROVIDERS: PCP Family Medicine; Visit Provider Nurse Practitioner Family | DX: I87.2 Venous insufficiency (chronic) (peripheral) (principal); L97.822 Non-pressure chronic ulcer of other part of left lower leg with fat layer exposed; I96 Gangrene, not elsewhere classified; L97.311 Non-pressure chronic ulcer of right ankle limited to breakdown of skin | CPT/HCPCS: 11042; 11045 ==

== ENCOUNTER → 2021-09-27 08:07 | Outpatient (BNVA) | payer MEDICARE, MEDICAID, SELFPAY | PROVIDERS: PCP Family Medicine; Visit Provider Nurse Practitioner Family | DX: I87.2 Venous insufficiency (chronic) (peripheral) (principal); L97.822 Non-pressure chronic ulcer of other part of left lower leg with fat layer exposed; I96 Gangrene, not elsewhere classified; L97.311 Non-pressure chronic ulcer of right ankle limited to breakdown of skin | CPT/HCPCS: 11042; 11045; A6252; A6253 ==

== ENCOUNTER → 2021-10-04 08:10 | Outpatient (BNVA) | payer MEDICARE, MEDICAID, SELFPAY | PROVIDERS: PCP Family Medicine; Visit Provider Nurse Practitioner Family | DX: I87.2 Venous insufficiency (chronic) (peripheral) (principal); L97.822 Non-pressure chronic ulcer of other part of left lower leg with fat layer exposed; I96 Gangrene, not elsewhere classified; L97.311 Non-pressure chronic ulcer of right ankle limited to breakdown of skin | CPT/HCPCS: 11042; 11045; 87070; 87077; 87176; 87186; 87205; A6252; A6253 ==

== ENCOUNTER → 2021-10-11 08:13 | Outpatient (BNVA) | payer MEDICARE, MEDICAID, SELFPAY | PROVIDERS: PCP Family Medicine; Visit Provider Nurse Practitioner Family | DX: I87.2 Venous insufficiency (chronic) (peripheral) (principal); L97.822 Non-pressure chronic ulcer of other part of left lower leg with fat layer exposed; I96 Gangrene, not elsewhere classified; L97.311 Non-pressure chronic ulcer of right ankle limited to breakdown of skin | CPT/HCPCS: 11042; 11045 ==

== ENCOUNTER → 2021-10-26 14:19 | Outpatient (BNVA) | payer MEDICARE, MEDICAID, SELFPAY | PROVIDERS: PCP Family Medicine; Visit Provider Surgery | DX: I87.2 Venous insufficiency (chronic) (peripheral) (principal); L97.822 Non-pressure chronic ulcer of other part of left lower leg with fat layer exposed; I96 Gangrene, not elsewhere classified; L97.311 Non-pressure chronic ulcer of right ankle limited to breakdown of skin | CPT/HCPCS: 11042; 11045; 88305; A6252 ==

== ENCOUNTER → 2021-11-08 08:14 | Outpatient (BNVA) | payer MEDICARE, MEDICAID, SELFPAY | PROVIDERS: PCP Family Medicine; Visit Provider Nurse Practitioner Family | DX: I87.2 Venous insufficiency (chronic) (peripheral) (principal); L97.822 Non-pressure chronic ulcer of other part of left lower leg with fat layer exposed; I96 Gangrene, not elsewhere classified; L97.311 Non-pressure chronic ulcer of right ankle limited to breakdown of skin | CPT/HCPCS: 11042; 11045; A6252 ==

== ENCOUNTER → 2021-11-22 08:48 | Outpatient (BNVA) | payer MEDICARE, MEDICAID, SELFPAY | PROVIDERS: PCP Family Medicine; Visit Provider Nurse Practitioner Family | DX: I87.2 Venous insufficiency (chronic) (peripheral) (principal); L97.311 Non-pressure chronic ulcer of right ankle limited to breakdown of skin; I96 Gangrene, not elsewhere classified | CPT/HCPCS: 11042; 11045; A6252; A6253 ==

== ENCOUNTER → 2021-12-06 08:18 | Outpatient (BNVA) | payer MEDICARE, MEDICAID, SELFPAY | PROVIDERS: PCP Family Medicine; Visit Provider Nurse Practitioner Family | DX: I96 Gangrene, not elsewhere classified (principal); L97.822 Non-pressure chronic ulcer of other part of left lower leg with fat layer exposed; I87.2 Venous insufficiency (chronic) (peripheral); L97.311 Non-pressure chronic ulcer of right ankle limited to breakdown of skin | CPT/HCPCS: 11042; 11045; A6252 ==

== ENCOUNTER → 2021-12-20 09:29 | Outpatient (BNVA) | payer MEDICARE, MEDICAID, SELFPAY | PROVIDERS: PCP Family Medicine; Referring Provider Family Medicine; Visit Provider Student in an Organized Health Care Education/Training Program | DX: M25.551 Pain in right hip (principal); Z96.643 Presence of artificial hip joint, bilateral; I87.2 Venous insufficiency (chronic) (peripheral); L97.822 Non-pressure chronic ulcer of other part of left lower leg with fat layer exposed; I96 Gangrene, not elsewhere classified; L97.311 Non-pressure chronic ulcer of right ankle limited to breakdown of skin | CPT/HCPCS: 11042; 11045; 73502; 99203 ==

== ENCOUNTER 2022-01-02 06:00 | Outpatient (RCR) | payer MEDICARE, MEDICAID, SELFPAY | END 2022-01-25 23:59 | disposition home or self-care (01) | LOC: MOT 06:00 | PROVIDERS: PCP Family Medicine; Visit Provider Nurse Practitioner Family | DX: I89.0 Lymphedema, not elsewhere classified (principal); I87.2 Venous insufficiency (chronic) (peripheral) | CPT/HCPCS: 97140; 97166 ==

== ENCOUNTER → 2022-01-03 08:06 | Outpatient (BNVA) | payer MEDICARE, MEDICAID, SELFPAY | PROVIDERS: PCP Family Medicine; Visit Provider Nurse Practitioner Family | DX: I87.2 Venous insufficiency (chronic) (peripheral) (principal); L97.822 Non-pressure chronic ulcer of other part of left lower leg with fat layer exposed; L97.311 Non-pressure chronic ulcer of right ankle limited to breakdown of skin; I96 Gangrene, not elsewhere classified | CPT/HCPCS: 11042; 11045; 87070 ==

== ENCOUNTER → 2022-01-17 07:57 | Outpatient (BNVA) | payer MEDICARE, MEDICAID, SELFPAY | PROVIDERS: PCP Family Medicine; Visit Provider Thoracic Surgery (Cardiothoracic Vascular Surgery) | DX: I87.2 Venous insufficiency (chronic) (peripheral) (principal); I96 Gangrene, not elsewhere classified; L97.822 Non-pressure chronic ulcer of other part of left lower leg with fat layer exposed; L97.311 Non-pressure chronic ulcer of right ankle limited to breakdown of skin | CPT/HCPCS: 11042; 11045 ==

== ENCOUNTER → 2022-02-14 08:13 | Outpatient (BNVA) | payer MEDICARE, MEDICAID, SELFPAY | PROVIDERS: PCP Family Medicine; Visit Provider Nurse Practitioner Family | DX: I96 Gangrene, not elsewhere classified (principal); I87.2 Venous insufficiency (chronic) (peripheral); I89.0 Lymphedema, not elsewhere classified; L97.822 Non-pressure chronic ulcer of other part of left lower leg with fat layer exposed; L97.312 Non-pressure chronic ulcer of right ankle with fat layer exposed | CPT/HCPCS: 11042; 11045; 87070; 87077; 87176; 87186; 87205 ==

== ENCOUNTER → 2022-02-21 08:15 | Outpatient (BNVA) | payer MEDICARE, MEDICAID, SELFPAY | PROVIDERS: PCP Family Medicine; Visit Provider Nurse Practitioner Family | DX: I96 Gangrene, not elsewhere classified (principal); I87.2 Venous insufficiency (chronic) (peripheral); I89.0 Lymphedema, not elsewhere classified; L97.822 Non-pressure chronic ulcer of other part of left lower leg with fat layer exposed; L97.312 Non-pressure chronic ulcer of right ankle with fat layer exposed | CPT/HCPCS: 11042; 11045 ==

== ENCOUNTER → 2022-02-28 08:14 | Outpatient (BNVA) | payer MEDICARE, MEDICAID, SELFPAY | PROVIDERS: PCP Family Medicine; Visit Provider Nurse Practitioner Family | DX: I96 Gangrene, not elsewhere classified (principal); I87.2 Venous insufficiency (chronic) (peripheral); L97.822 Non-pressure chronic ulcer of other part of left lower leg with fat layer exposed; L97.312 Non-pressure chronic ulcer of right ankle with fat layer exposed | CPT/HCPCS: 11042; 11045 ==

== ENCOUNTER → 2022-03-07 08:02 | Outpatient (BNVA) | payer MEDICARE, MEDICAID, SELFPAY | PROVIDERS: PCP Family Medicine; Visit Provider Nurse Practitioner Family | DX: I96 Gangrene, not elsewhere classified (principal); I87.2 Venous insufficiency (chronic) (peripheral); L97.822 Non-pressure chronic ulcer of other part of left lower leg with fat layer exposed; L97.312 Non-pressure chronic ulcer of right ankle with fat layer exposed | CPT/HCPCS: 11042; 11045 ==

== ENCOUNTER → 2022-03-14 08:27 | Outpatient (BNVA) | payer MEDICARE, MEDICAID, SELFPAY | PROVIDERS: PCP Family Medicine; Visit Provider Nurse Practitioner Family | DX: I96 Gangrene, not elsewhere classified (principal); I87.2 Venous insufficiency (chronic) (peripheral); L97.822 Non-pressure chronic ulcer of other part of left lower leg with fat layer exposed; L97.312 Non-pressure chronic ulcer of right ankle with fat layer exposed | CPT/HCPCS: 11042; 11045 ==

== ENCOUNTER → 2022-03-28 10:33 | Outpatient (BNVA) | payer MEDICARE, MEDICAID, SELFPAY | PROVIDERS: PCP Family Medicine; Visit Provider Nurse Practitioner Family | DX: I96 Gangrene, not elsewhere classified (principal); I87.2 Venous insufficiency (chronic) (peripheral); L97.822 Non-pressure chronic ulcer of other part of left lower leg with fat layer exposed; L97.312 Non-pressure chronic ulcer of right ankle with fat layer exposed | CPT/HCPCS: 11042; 11045 ==

== ENCOUNTER → 2022-04-04 09:52 | Outpatient (BNVA) | payer MEDICARE, MEDICAID, SELFPAY | PROVIDERS: PCP Family Medicine; Visit Provider Nurse Practitioner Family | DX: I96 Gangrene, not elsewhere classified (principal); I87.2 Venous insufficiency (chronic) (peripheral); L97.822 Non-pressure chronic ulcer of other part of left lower leg with fat layer exposed; L97.312 Non-pressure chronic ulcer of right ankle with fat layer exposed | CPT/HCPCS: 11042; 11045 ==

== ENCOUNTER → 2022-04-25 08:05 | Outpatient (BNVA) | payer MEDICARE, MEDICAID, SELFPAY | PROVIDERS: PCP Family Medicine; Visit Provider Surgery | DX: I96 Gangrene, not elsewhere classified (principal); I87.2 Venous insufficiency (chronic) (peripheral); L97.822 Non-pressure chronic ulcer of other part of left lower leg with fat layer exposed; L97.312 Non-pressure chronic ulcer of right ankle with fat layer exposed | CPT/HCPCS: 11042; 11045 ==

== ENCOUNTER → 2022-05-15 08:01 | Outpatient (BNVA) | payer MEDICARE, MEDICAID, SELFPAY | PROVIDERS: PCP Family Medicine; Visit Provider Thoracic Surgery (Cardiothoracic Vascular Surgery) | DX: I96 Gangrene, not elsewhere classified (principal); I87.2 Venous insufficiency (chronic) (peripheral); L97.822 Non-pressure chronic ulcer of other part of left lower leg with fat layer exposed; L97.312 Non-pressure chronic ulcer of right ankle with fat layer exposed | CPT/HCPCS: 11042; 11045; 97597 ==

== ENCOUNTER → 2022-06-05 07:57 | Outpatient (BNVA) | payer MEDICARE, MEDICAID, SELFPAY | PROVIDERS: PCP Family Medicine; Visit Provider Thoracic Surgery (Cardiothoracic Vascular Surgery) | DX: I96 Gangrene, not elsewhere classified (principal); I87.2 Venous insufficiency (chronic) (peripheral); L97.822 Non-pressure chronic ulcer of other part of left lower leg with fat layer exposed; L97.312 Non-pressure chronic ulcer of right ankle with fat layer exposed | CPT/HCPCS: 11042; 11045; 97597 ==

== ENCOUNTER → 2022-06-12 07:53 | Outpatient (BNVA) | payer MEDICARE, MEDICAID, SELFPAY | PROVIDERS: PCP Family Medicine; Visit Provider Thoracic Surgery (Cardiothoracic Vascular Surgery) | DX: I96 Gangrene, not elsewhere classified (principal); I87.2 Venous insufficiency (chronic) (peripheral); L97.822 Non-pressure chronic ulcer of other part of left lower leg with fat layer exposed; L97.312 Non-pressure chronic ulcer of right ankle with fat layer exposed | CPT/HCPCS: 11042; 11045; 97597 ==

== ENCOUNTER 2022-06-18 15:55 | Emergency (ER) | payer MEDICARE, MEDICAID, SELFPAY ==
[2022-06-18 16:17] VITALS: BP 113/74; PULSE 63; RESP 16; TEMP 36.4; O2SAT 98; BMI 31.4
[2022-06-18 18:14] LABS: Basophils % 0.5 %; Eosinophils # 0.5 10^3/uL (0.0-0.8); Eosinophils % 5.8 %; Hemoglobin 11.2 g/dL (11.7-16.6); Lymphocytes # 1.9 10^3/uL (0.8-4.8); Lymphocytes % 24.8 %; Mean Corpuscular HGB Conc 28.7 g/dL (30.0-36.0); Mean Corpuscular Volume 76.8 fl (80-94); Mean Platelet Volume 8.7 fL (7.4-10.4); Monocytes # 0.7 10^3/uL (0.2-0.9); Monocytes % 8.5 %; Neutrophils # 4.69 10^3/uL (1.8-7.7); Nucleated Red Blood Cells % 0 %; Platelet Count 235 10^3/cmm (130-400); Red Blood Count 5.08 10^6/uL (4.1-5.3); Red Cell Distribution Width 18.6 % (12.1-15.1); White Blood Count 7.8 10^3/uL (4.0-10.0)
[2022-06-18 18:21] LABS: Alanine Aminotransferase 11 U/L (0-41); Albumin Level 3.4 g/dL (3.5-5.2); Alkaline Phosphatase 87 U/L (40-130); Aspartate Amino Transferase 15 U/L (0-40); Blood Urea Nitrogen 27 mg/dL (8-23); C Reactive Protein 34.7 mg/L (0.0-4.9); Carbon Dioxide 29 mmol/L (22-29); Chloride 98 mmol/L (98-107); Globulin 4.5 g/dL (1.3-4.6); Glucose 179 mg/dL (65-115); Osmolality Calculated 290 mOsm/kg (285-295); Sodium 135 mmol/L (136-145); Total Bilirubin 0.3 mg/dL (0.15-1.2); Total Protein 7.9 g/dL (6.6-8.7)
--- NOTE | 2022-06-18 19:31 | ED_ITS ---
HPI - General Adult General: Chief complaint: General Medical Stated complaint: generalized infection Time Seen by Provider: 06/18/22 19:04 History of Present Illness: Patient is an 82-year-old male comes to the ED with wound on left lower leg. Patient was sent here by Dr. Lopez for IV antibiotics for leg wounds. Patient sees wound care clinic to manage chronic wounds on left lower legs. Approximately a month ago he started developing a new wound on the left lower leg posterior calf. A little over 10 days ago he was put on ciprofloxacin since his last wound culture done on his chronic wounds was positive for Pseudomonas and Streptococcus. He finished taking ciprofloxac in approximately 3 days ago. He says that his wounds on his left lower leg did improve after taking the Cipro. His newer wound on left lower leg calf has stayed the same over the past month, but has not worsened. He still has some puslike drainage from wounds. Endorses left lower leg pain due to wounds. Denies any fever, chills, nausea/vomiting, chest pain or shortness of breath. Patient has appointment with wound care clinic tomorrow. Associated symptoms: Deny chest pain, dyspnea, headache(s), nausea, rash, palpitations or vomiting Review of Systems Const: Denies: fever(s), chills or fatigue Eyes: Denies: change in vision or eye discomfort ENMT: Denies: throat pain, odynophagia, nasal discharge or nasal congestion Card: Denies: chest pain, palpitations, edema, swelling of feet/ankles, dyspnea on exertion or orthopnea Resp: Denies: dyspnea, productive cough or non-productive cough GI: Denies: abdominal pain, nausea, vomiting, diarrhea, constipation or hematochezia : Denies: flank pain, difficulty urinating, dysuria or hematuria Musc: Denies: neck pain, back pain or extremity swelling Skin/Breast: Reports: lesions (Chronic wounds on left lower leg.); Denies: rash or new lesions Neuro: Denies: headache(s), numbness in extremities or weakness in extremities PFS ED PFSH: Medical History (Updated 06/18/22 @ 21:13 by MILDRED Lua) HTN (hypertension) Ischemia of extremity Ischemia of lower extremity Umbilical hernia Surgical History (Updated 12/24/21 @ 11:19 by Prince Kim DO) 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 History of coronary artery stent placement Family History Denies family history of Diabetes CAD (coronary artery disease) Clotting disorder Dementia Hyperlipidemia Psychiatric illness Chronic kidney disease (CKD) Suicide Anesthesia complication Bleeding disorder Family history of premature coronary artery disease Lung disease Cancer Hypertension Stroke Social History Smoking and tobacco status: former smoker Quit status (tobacco): has quit using tobacco Alcohol intake: never Physical Exam Const: COMMON NORMALS: no acute distress, patient oriented x3 and alert GENERAL APPEARANCE: cooperative HENMT: COMMON NORMALS: normocephalic HEAD & SCALP: normocephalic MOUTH: Normal oral and palatal mucosa present THROAT: posterior oropharynx normal and uvula midline Neck/C-Spine: COMMON NORMALS: supple GENERAL: Yes normal visual inspection Resp: COMMON NORMALS: normal respiratory effort, No retractions, No use of accessory muscles and clear to auscultation bilaterally AUSCULTATION: clear to auscultation bilaterally Cardio: COMMON NORMALS: regular rate, regular rhythm, S1 normal heart sound present, S2 normal heart sound present, No gallops present (Cardio), No clicks present (Cardio), No murmurs present (Cardio) and Peripheral pulses 2+ throughout RATE: regular rate RHYTHM: regular rhythm HEART SOUNDS: S1 normal heart sound present and S2 normal heart sound present PERIPHERAL PULSES: Peripheral pulses 2+ throughout GI: COMMON NORMALS: Normal to inspection, nondistended, normoactive bowel sounds present, Soft to palpation, non-tender and no masses PALPATION: Yes Soft to palpation : COMMON NORMALS: Yes no CVA tenderness BLADDER/KIDNEY EXAM: Yes no CVA tenderness Back/Pelvis: COMMON NORMALS: no CVA tenderness Extremity: NARRATIVE EXTREMITY EXAM: Patient has chronic ulcers to right and left lower legs. New ulcer on posterior aspect of left lower leg is stage II. Some surrounding erythema, warmth and tenderness noted. No purulent drainage seen. Skin is dry and scaly Neuro: COMMON NORMALS: patient oriented x3 SENSORIUM/ORIENTATION: Yes alert GAIT: Yes Normal gait present Skin: GENERAL SKIN EXAM: dry skin Course Vital Signs: Vital signs: Vital Signs Temperature 97.5 F L 06/18/22 16:17 Pulse Rate 70 06/18/22 21:44 Respiratory Rate 20 H 06/18/22 21:44 Blood Pressure 123/67 06/18/22 21:44 Pulse Oximetry 97 06/18/22 21:44 Oxygen Delivery Me thod 06/18/22 21:05 MDM - General Adult Medical Decision Making Patient is an 82-year-old male comes to the ED with wound on left lower leg. Patient was sent here by Dr. Lopez for IV antibiotics for leg wounds. Patient sees wound care clinic to manage chronic wounds on left lower legs. Approximately a month ago he started developing a new wound on the left lower leg posterior calf. A little over 10 days ago he was put on ciprofloxacin since his last wound culture done on his chronic wounds was positive for Pseudomonas and Streptococcus. He finished taking ciprofloxacin approximately 3 days ago. He says that his wounds on his left lower leg did improve after taking the Cipro. His newer wound on left lower leg calf has stayed the same over the past month, but has not worsened. Denies any fevers or any other symptoms. Vitals are stable. Patient is lying comfortably on exam bed and appears in no acute distress. Patient has chronic ulcers to right and left lower legs. New ulcer on posterior aspect of left lower leg is stage II. Some surrounding erythema, warmth and tenderness noted. No purulent drainage seen. Patient's white blood cell count is 7.8 and CRP is 34.7. Rest of labs are unremarkable. X-ray of left ankle shows the soft tissue swelling, ulceration and no acute osseous injury or signs of osteomyelitis. Wound culture and Gram stain obtained and pending. Patient was given IV Zosyn here in the ED and he did not want to be a dmitted. He has an appointment with wound care clinic tomorrow. He was diagnosed with ulcer of left lower leg chronic ulcer of lower extremity and was discharged home with a prescription for Augmentin. Return to ED precautions given. Patient understood and agreed with plan. Lab Data I reviewed the patient's lab results. 06/18/22 17:41 06/18/22 17:41 Radiology Impressions Ankle X-Ray 06/18/22 19:47 IMPRESSION: 1. Diffuse soft tissue swelling with large regions of ulceration greatest medially in the lower leg. 2. No acute osseous injury. Distal tibial periosteal reaction may reflect chronic venous insufficiency. If osteomyelitis is suspected MRI follow-up is recommended. Laboratory Results WBC 7.8 10^3/uL (4.0-10.0) 06/18/22 17:41 RBC 5.08 10^6/uL (4.1-5.3) 06/18/22 17:41 Hgb 11.2 g/dL (11.7-16.6) L 06/18/22 17:41 Hct 39.0 % (42.0-52.0) L 06/18/22 17:41 MCV 76.8 fl (80-94) L 06/18/22 17:41 MCH 22.0 pg (28.0-34.0) L 06/18/22 17:41 MCHC 28.7 g/dL (30.0-36.0) L 06/18/22 17:41 RDW 18.6 % (12.1-15.1) H 06/18/22 17:41 Plt Count 235 10^3/cmm (130-400) 06/18/22 17:41 MPV 8.7 fL (7.4-10.4) 06/18/22 17:41 Neut % (Auto) 60.0 % 06/18/22 17:41 Lymph % (Auto) 24.8 % 06/18/22 17:41 [place] % (Auto) 8.5 % 06/18/22 17:41 Eos % (Auto) 5.8 % 06/18/22 17:41 Baso % (Auto) 0.5 % 06/18/22 17:41 Neut # (Auto) 4.69 10^3/uL (1.8-7.7) 06/18/22 17:41 Lymph # (Auto) 1.9 10^3/uL (0.8-4.8) 06/18/22 17:41 [place] # (Auto) 0.7 10^3/uL (0.2-0.9) 06/18/22 17:41 Eos # (Auto) 0.5 10^3/uL (0.0-0.8) 06/18/22 17:41 Baso # (Auto) 0.0 10^3/uL (0.0-0.1) 06/18/22 17:41 Nucleated RBC % (auto) 0 % 06/18/22 17:41 Nucleated RBCs # 0.0 /100WBC 06/18/22 17:41 Sodium 135 mmol/L (136-145) L 06/18/22 17:41 Potassium 4.0 mmol/L (3.5-5.1) 06/18/22 17:41 Chloride 98 mmol/L (98-107) 06/18/22 17:41 Carbon Dioxide 29 mmol/L (22-29) 06/18/22 17:41 Anion Gap 12.0 (5-19) 06/18/22 17:41 BUN 27 mg/dL (8-23) H 06/18/22 17:41 Creatinine 0.7 mg/dL (0.7-1.2) 06/18/22 17:41 GFR Calculation Not Reportable 06/18/22 17:41 Glucose 179 mg/dL (65-115) H 06/18/22 17:41 Calculated Osmolality 290 mOsm/kg (285-295) 06/18/22 17:41 Calcium 9.0 mg/dL (8.5-10.5) 06/18/22 17:41 Total Bilirubin 0.3 mg/dL (0.15-1.2) 06/18/22 17:41 AST 15 U/L (0-40) 06/18/22 17:41 ALT 11 U/L (0-41) 06/18/22 17:41 Alkaline Phosphatase 87 U/L (40-130) 06/18/22 17:41 C-Reactive Protein 34.7 mg/L (0.0-4.9) H 06/18/22 17:41 Total Protein 7.9 g/dL (6.6-8.7) 06/18/22 17:41 Albumin 3.4 g/dL (3.5-5.2) L 06/18/22 17:41 Globulin 4.5 g/dL (1.3-4.6) 06/18/22 17:41 Discharge Plan Discharge Patient Disposition: Home Clinical Impression: Ulcer of left lower leg Qualifiers: Non-pressure ulcer stage: limited to breakdown of skin Qualified Code(s): L97.921 - Non-pressure chronic ulcer of unspecified part of left lower leg limited to breakdown of skin Chronic ulcer of lower extremity Qualifiers: Laterality: unspecified laterality Non-pressure ulcer stage: unspecified non- pressure ulcer stage Qualified Code(s): L97.909 - Non-pressure chronic ulcer of unspecified part of unspecified lower leg with unspecified severity Condition: Stable Prescriptions: New amoxicillin-pot clavulanate 500-125 mg tablet 1 tab PO BID 10 Days Qty: 20 0RF No Action clopidogrel [Plavix] 75 mg tablet 75 mg PO DAILY lisinopril 5 mg tablet 5 mg PO DAILY metoprolol tartrate 25 mg tablet 50 mg PO DAILY simvastatin 80 mg tablet 80 mg PO ONCE ciprofloxacin HCl 500 mg tablet 500 mg PO BID Qty: 20 0RF Dakin's Solution 0.125 % solution 1 applic topical DAILY Qty: 473 0RF ciprofloxacin HCl [Cipro] 500 mg tablet 500 mg PO BID Qty: 28 0RF amoxicillin-pot clavulanate [Augmentin] 500-125 mg tablet 1 tab PO BID Qty: 20 0RF levofloxacin 750 mg tablet 750 mg PO DAILY Qty: 5 0RF furosemide [Lasix] 40 mg tablet 60 mg PO BID Qty: 90 6RF levofloxacin 500 mg tablet 500 mg PO DAILY Qty: 5 0RF levofloxacin 750 mg tablet 750 mg PO DAILY Qty: 5 0RF Eliquis 5 mg Tablet 5 mg PO BID pantoprazole 40 mg tablet,delayed release (DR/EC) 40 mg PO DAILY Discharge Orders: Discharge ED (Routine); Ordered 06/18/22 Ordered By: Conrad Kim Referrals: Иван Lopez [Primary Care Provider] - Discharge Diet: Regular Discharge Activity: Increase activity as tolerated Activity Restrictions/Additional Instructions: Follow-up with wound care clinic at your appointment tomorrow for further management of wounds. Take medications as prescribed. Return to the ER or your medical provider if condition worsens. Please read and understand discharge instructions. Thank you for choosing [facility] for your healthcare needs today. Please realize this is an emergency room and that we are providing you with a medical screening exam and this may not be complete and all inclusive of all the testing and or work up that you may need to determine your ailment or severity of your illness. It is very important that you follow up as instructed or that you return to the Emergency Department should you have concerns or if your condition changes or worsens in any way. Coding Level of Care Code ED Glass Sagger for Kaylene Breaux
--- NOTE | 2022-06-18 19:47 | XRR_ITS ---
PROCEDURE INFORMATION: Exam: XR Left Ankle Exam date and time: 06/18/2022 8:02 PM Age: 82 years old Clinical indication: Condition or disease; Other: Chronic wound lt ankle; Patient HX: Chronic wounds on left ankle; Additional info: Chronic wounds on left ankle region TECHNIQUE: Imaging protocol: Radiologic exam of the left ankle. Views: 3 or more views. COMPARISON: No relevant prior studies available. FINDINGS: Bones/joints: Mild tibiotalar joint degenerative changes are present. The distal tibia has a mild periosteal reaction present. No acute fracture or dislocation. Soft tissues: Large soft tissue ulcer is seen in the medial aspect of the left lower extremity measuring 13 cm in length. There are sheet like calcifications in the soft tissue near this region. Smaller regions of ulceration are seen in the anterior leg measuring 1.3 cm and in the posterior leg measuring 4.5 cm. Diffuse soft tissue swelling. XR/XR ankle LT min 3V* [id number] IMPRESSION: 1. Diffuse soft tissue swelling with large regions of ulceration greatest medially in the lower leg. 2. No acute osseous injury. Distal tibial periosteal reaction may reflect chronic venous insufficiency. If osteomyelitis is suspected MRI follow-up is recommended.
[2022-06-18 19:51] VITALS: BP 130/61; PULSE 50; RESP 20; O2SAT 98
[2022-06-18] MEDS: piperacillin-tazobactam 3.375 GM in sodium chloride 0.9% (plus) 50 ML IV (20:14)
[2022-06-18 21:05] VITALS: BP 121/54; PULSE 67; RESP 18; O2SAT 97
[2022-06-18 21:44] VITALS: BP 123/67; PULSE 70; RESP 20; O2SAT 97
== END 2022-06-18 21:50 | disposition home or self-care (01) ==
PROVIDERS: Emergency Provider Physician Assistant; PCP Family Medicine
DX: L97.921 Non-pressure chronic ulcer of unspecified part of left lower leg limited to breakdown of skin (principal); Z79.01 Long term (current) use of anticoagulants; Z79.02 Long term (current) use of antithrombotics/antiplatelets; I10 Essential (primary) hypertension; Z87.891 Personal history of nicotine dependence
CPT/HCPCS: 36415; 73610; 80053; 85025; 86140; 87070; 87075; 87077; 87186; 87205; 96365; 99284; J2543

== ENCOUNTER → 2022-06-19 08:11 | Outpatient (BNVA) | payer MEDICARE, MEDICAID, SELFPAY | PROVIDERS: PCP Family Medicine; Visit Provider Thoracic Surgery (Cardiothoracic Vascular Surgery) | DX: I96 Gangrene, not elsewhere classified (principal); I87.2 Venous insufficiency (chronic) (peripheral); L97.822 Non-pressure chronic ulcer of other part of left lower leg with fat layer exposed; L97.312 Non-pressure chronic ulcer of right ankle with fat layer exposed | CPT/HCPCS: 11042; 11045; 97597; A6252; A6253 ==

== ENCOUNTER → 2022-06-26 08:03 | Outpatient (BNVA) | payer MEDICARE, MEDICAID, SELFPAY | PROVIDERS: PCP Family Medicine; Visit Provider Thoracic Surgery (Cardiothoracic Vascular Surgery) | DX: I87.2 Venous insufficiency (chronic) (peripheral) (principal); L97.822 Non-pressure chronic ulcer of other part of left lower leg with fat layer exposed; L97.312 Non-pressure chronic ulcer of right ankle with fat layer exposed | CPT/HCPCS: 11042; 11045; 97597; A6252; A6253 ==

== ENCOUNTER → 2022-07-03 08:05 | Outpatient (BNVA) | payer MEDICARE, MEDICAID, SELFPAY | PROVIDERS: PCP Family Medicine; Visit Provider Thoracic Surgery (Cardiothoracic Vascular Surgery) | DX: I96 Gangrene, not elsewhere classified (principal); I87.2 Venous insufficiency (chronic) (peripheral); L97.822 Non-pressure chronic ulcer of other part of left lower leg with fat layer exposed; L97.312 Non-pressure chronic ulcer of right ankle with fat layer exposed | CPT/HCPCS: 11042; 11045; 97597; A6252 ==

== ENCOUNTER → 2022-07-10 08:03 | Outpatient (BNVA) | payer MEDICARE, MEDICAID, SELFPAY | PROVIDERS: PCP Family Medicine; Visit Provider Thoracic Surgery (Cardiothoracic Vascular Surgery) | DX: I96 Gangrene, not elsewhere classified (principal); I87.2 Venous insufficiency (chronic) (peripheral); L97.822 Non-pressure chronic ulcer of other part of left lower leg with fat layer exposed; L97.312 Non-pressure chronic ulcer of right ankle with fat layer exposed | CPT/HCPCS: 11042; 11045; 97597 ==

== ENCOUNTER → 2022-07-17 14:39 | Outpatient (BNVA) | payer MEDICARE, MEDICAID, SELFPAY | PROVIDERS: PCP Family Medicine; Visit Provider Thoracic Surgery (Cardiothoracic Vascular Surgery) | DX: I96 Gangrene, not elsewhere classified (principal); I87.2 Venous insufficiency (chronic) (peripheral); I89.0 Lymphedema, not elsewhere classified; L97.822 Non-pressure chronic ulcer of other part of left lower leg with fat layer exposed; L97.312 Non-pressure chronic ulcer of right ankle with fat layer exposed | CPT/HCPCS: 11042; 11045; 97597 ==

== ENCOUNTER → 2022-07-22 08:59 | Outpatient (BNVA) | payer MEDICARE, MEDICAID, SELFPAY | PROVIDERS: PCP Family Medicine; Visit Provider Student in an Organized Health Care Education/Training Program | DX: I83.009 Varicose veins of unspecified lower extremity with ulcer of unspecified site (principal); L08.9 Local infection of the skin and subcutaneous tissue, unspecified | CPT/HCPCS: 99205 ==

== ENCOUNTER → 2022-07-31 08:30 | Outpatient (BNVA) | payer MEDICARE, MEDICAID, SELFPAY | PROVIDERS: PCP Family Medicine; Visit Provider Thoracic Surgery (Cardiothoracic Vascular Surgery) | DX: I87.2 Venous insufficiency (chronic) (peripheral) (principal); L97.822 Non-pressure chronic ulcer of other part of left lower leg with fat layer exposed; L97.312 Non-pressure chronic ulcer of right ankle with fat layer exposed | CPT/HCPCS: 11042; 11045; 97597; A6252 ==

== ENCOUNTER → 2022-08-07 07:52 | Outpatient (BNVA) | payer MEDICARE, MEDICAID, SELFPAY | PROVIDERS: PCP Family Medicine; Visit Provider Thoracic Surgery (Cardiothoracic Vascular Surgery) | DX: I96 Gangrene, not elsewhere classified (principal); I87.2 Venous insufficiency (chronic) (peripheral); L97.822 Non-pressure chronic ulcer of other part of left lower leg with fat layer exposed; L97.312 Non-pressure chronic ulcer of right ankle with fat layer exposed | CPT/HCPCS: 11042; 11045; 97597; A6252; A6253 ==

== ENCOUNTER → 2022-08-08 14:26 | Outpatient (BNVA) | payer MEDICARE, MEDICAID, SELFPAY | PROVIDERS: PCP Family Medicine; Visit Provider Student in an Organized Health Care Education/Training Program | DX: L08.9 Local infection of the skin and subcutaneous tissue, unspecified (principal); I83.009 Varicose veins of unspecified lower extremity with ulcer of unspecified site | CPT/HCPCS: 99213 ==

== ENCOUNTER → 2022-08-21 08:01 | Outpatient (BNVA) | payer MEDICARE, MEDICAID, SELFPAY | PROVIDERS: PCP Family Medicine; Visit Provider Thoracic Surgery (Cardiothoracic Vascular Surgery) | DX: I96 Gangrene, not elsewhere classified (principal); I87.2 Venous insufficiency (chronic) (peripheral); L97.822 Non-pressure chronic ulcer of other part of left lower leg with fat layer exposed; L97.312 Non-pressure chronic ulcer of right ankle with fat layer exposed | CPT/HCPCS: 11042; 11045; 97597 ==

== ENCOUNTER → 2022-08-22 12:00 | Outpatient (BNVA) | payer MEDICARE, MEDICAID, SELFPAY | PROVIDERS: PCP Family Medicine; Visit Provider Student in an Organized Health Care Education/Training Program | DX: I83.009 Varicose veins of unspecified lower extremity with ulcer of unspecified site (principal); L08.9 Local infection of the skin and subcutaneous tissue, unspecified | CPT/HCPCS: 99024; 99213 ==

== ENCOUNTER → 2022-08-28 07:59 | Outpatient (BNVA) | payer MEDICARE, MEDICAID, SELFPAY | PROVIDERS: PCP Family Medicine; Visit Provider Thoracic Surgery (Cardiothoracic Vascular Surgery) | DX: I96 Gangrene, not elsewhere classified (principal); I87.2 Venous insufficiency (chronic) (peripheral); L97.822 Non-pressure chronic ulcer of other part of left lower leg with fat layer exposed; L97.312 Non-pressure chronic ulcer of right ankle with fat layer exposed | CPT/HCPCS: 11042; 11045; 97597; A6197 ==

== ENCOUNTER → 2022-09-04 08:04 | Outpatient (BNVA) | payer MEDICARE, MEDICAID, SELFPAY | PROVIDERS: PCP Family Medicine; Visit Provider Thoracic Surgery (Cardiothoracic Vascular Surgery) | DX: I87.2 Venous insufficiency (chronic) (peripheral) (principal); I96 Gangrene, not elsewhere classified; L97.821 Non-pressure chronic ulcer of other part of left lower leg limited to breakdown of skin; L97.822 Non-pressure chronic ulcer of other part of left lower leg with fat layer exposed; L97.311 Non-pressure chronic ulcer of right ankle limited to breakdown of skin | CPT/HCPCS: 11042; 11045; 97597; A6197 ==

== ENCOUNTER → 2022-09-11 07:56 | Outpatient (BNVA) | payer MEDICARE, MEDICAID, SELFPAY | PROVIDERS: PCP Family Medicine; Visit Provider Thoracic Surgery (Cardiothoracic Vascular Surgery) | DX: I96 Gangrene, not elsewhere classified (principal); I87.2 Venous insufficiency (chronic) (peripheral); L97.822 Non-pressure chronic ulcer of other part of left lower leg with fat layer exposed; L97.312 Non-pressure chronic ulcer of right ankle with fat layer exposed | CPT/HCPCS: 11042; 11045; 97597; A6197; A6212 ==

== ENCOUNTER → 2022-09-18 08:08 | Outpatient (BNVA) | payer MEDICARE, MEDICAID, SELFPAY | PROVIDERS: PCP Family Medicine; Visit Provider Thoracic Surgery (Cardiothoracic Vascular Surgery) | DX: I96 Gangrene, not elsewhere classified (principal); I87.2 Venous insufficiency (chronic) (peripheral); L97.822 Non-pressure chronic ulcer of other part of left lower leg with fat layer exposed; L97.312 Non-pressure chronic ulcer of right ankle with fat layer exposed; Z09 Encounter for follow-up examination after completed treatment for conditions other than malignant neoplasm | CPT/HCPCS: 11042; 11045; 97597; 97598; A6197 ==

== ENCOUNTER → 2022-09-25 07:45 | Outpatient (BNVA) | payer MEDICARE, MEDICAID, SELFPAY | PROVIDERS: PCP Family Medicine; Visit Provider Thoracic Surgery (Cardiothoracic Vascular Surgery) | DX: L97.822 Non-pressure chronic ulcer of other part of left lower leg with fat layer exposed (principal); I87.2 Venous insufficiency (chronic) (peripheral); L97.312 Non-pressure chronic ulcer of right ankle with fat layer exposed; Z09 Encounter for follow-up examination after completed treatment for conditions other than malignant neoplasm | CPT/HCPCS: 11042; 11045; 97597; 97598; A6197 ==

== ENCOUNTER → 2022-10-02 07:57 | Outpatient (BNVA) | payer MEDICARE, MEDICAID, SELFPAY | PROVIDERS: PCP Family Medicine; Visit Provider Thoracic Surgery (Cardiothoracic Vascular Surgery) | DX: I87.2 Venous insufficiency (chronic) (peripheral) (principal); L97.822 Non-pressure chronic ulcer of other part of left lower leg with fat layer exposed; L97.312 Non-pressure chronic ulcer of right ankle with fat layer exposed | CPT/HCPCS: 11042; 11045; 97597; 97598; A6197 ==

== ENCOUNTER → 2022-10-16 07:49 | Outpatient (BNVA) | payer MEDICARE, MEDICAID, SELFPAY | PROVIDERS: PCP Family Medicine; Visit Provider Thoracic Surgery (Cardiothoracic Vascular Surgery) | DX: I96 Gangrene, not elsewhere classified (principal); I87.2 Venous insufficiency (chronic) (peripheral); L97.822 Non-pressure chronic ulcer of other part of left lower leg with fat layer exposed; L97.312 Non-pressure chronic ulcer of right ankle with fat layer exposed | CPT/HCPCS: 11042; 11045; 97597 ==

== ENCOUNTER → 2022-10-30 07:37 | Outpatient (BNVA) | payer MEDICARE, MEDICAID, SELFPAY | PROVIDERS: PCP Family Medicine; Visit Provider Thoracic Surgery (Cardiothoracic Vascular Surgery) | DX: I96 Gangrene, not elsewhere classified (principal); I87.2 Venous insufficiency (chronic) (peripheral); L97.822 Non-pressure chronic ulcer of other part of left lower leg with fat layer exposed; L97.312 Non-pressure chronic ulcer of right ankle with fat layer exposed | CPT/HCPCS: 11042; 11045 ==

== ENCOUNTER 2022-11-05 14:41 | Outpatient (CLI) | payer MEDICARE, MEDICAID, SELFPAY ==
--- NOTE | 2022-11-05 15:00 | USR_ITS ---
PROCEDURE INFORMATION: Exam: US Duplex Bilateral Lower Extremity Arteries Exam date and time: 11/05/2022 3:10 PM Age: 82 years old Clinical indication: Other: Non healing sores near both ankles; Additional info: S81.134r - unspecified open wound, unspecified lower leg, . . . TECHNIQUE: Imaging protocol: Real-time ultrasound scan of the arteries of the bilateral lower extremities with 2-D banegas scale, color Doppler flow and spectral waveform analysis. Images documented and saved. COMPARISON: CR (LOW EXM, ) 06/18/2022 8:02 PM FINDINGS: Right external iliac artery: Proximal 109.2 cm/sec, mid 111.4 cm/sec, distal 122.4 cm/sec, biphasic. Right common femoral artery: 131.5 cm/sec, monophasic. Right superficial femoral artery: Proximal SFA 139.3 cm/sec, monophasic. Mid SFA 111.7 cm/sec, monophasic. Distal SFA 92.0 cm/sec, monophasic. Right popliteal artery: Proximal popliteal 73.8 cm/sec, monophasic. Right calf/foot arteries: Distal MEDIA MANAGER 134.1 cm/sec, monophasic. Dorsalis pedis 82.8 cm/sec, monophasic. Left external iliac artery: Proximal 80.2 cm/sec, mid 130.1 cm/sec, distal 127.5 cm/sec, monophasic. Left common femoral artery: 130.1 cm/sec, monophasic. Left superficial femoral artery: Proximal SFA 111.7 cm/sec, monophasic. Mid SFA 101.2 cm/sec, monophasic. Distal SFA 64.4 cm/sec, monophasic. Left popliteal artery: Proximal popliteal 55.2 cm/sec, monophasic. Left calf/foot arteries: Distal MEDIA MANAGER 63.2 cm/sec, monophasic. Dorsalis pedis 76.3 cm/sec, monophasic. Right Ankle-Brachial Index: 1.1. Left Ankle-Brachial Index: 0.8. US/[place] [id number] IMPRESSION: 1. Left lower extremity arterial monophasic waveforms throughout suggesting aortoiliac inflow limitation, with decreased left ankle-brachial index. 2. Monophasic waveforms distal to the right external iliac artery suggesting peripheral arterial disease. Borderline elevation distal posterior tibial artery systolic velocity. Normal right ankle-brachial index.
== END 2022-11-05 14:42 | disposition home or self-care (01) ==
LOC: RAD 14:42
PROVIDERS: PCP Family Medicine; Visit Provider Thoracic Surgery (Cardiothoracic Vascular Surgery)
DX: S81.802A Unspecified open wound, left lower leg, initial encounter (principal); S81.801A Unspecified open wound, right lower leg, initial encounter; X58.XXXA Exposure to other specified factors, initial encounter; M79.605 Pain in left leg; M79.604 Pain in right leg; R93.6 Abnormal findings on diagnostic imaging of limbs
CPT/HCPCS: 93925

== ENCOUNTER → 2022-11-06 07:56 | Outpatient (BNVA) | payer MEDICARE, MEDICAID, SELFPAY | PROVIDERS: PCP Family Medicine; Visit Provider Thoracic Surgery (Cardiothoracic Vascular Surgery) | DX: I96 Gangrene, not elsewhere classified (principal); I87.2 Venous insufficiency (chronic) (peripheral); L97.822 Non-pressure chronic ulcer of other part of left lower leg with fat layer exposed; L97.312 Non-pressure chronic ulcer of right ankle with fat layer exposed | CPT/HCPCS: 11042; 11045; 97597; 97598 ==

== ENCOUNTER 2022-11-13 06:41 | Outpatient (CLI) | payer MEDICARE, MEDICAID, SELFPAY ==
--- NOTE | 2022-11-13 07:00 | CTR_ITS ---
PROCEDURE INFORMATION: Exam: CTA Abdominal Aorta and Bilateral Lower Extremities (Run-off) With Contrast Exam date and time: 11/13/2022 7:36 AM Age: 82 years old Clinical indication: Other: Varicose veins, non healing ulcers on left calf, bilat medial ankles; Prior surgery; Surgery date: 6+ months; Surgery type: Surgery--heart stents, bilat leg stents, bilat hips, venouse ablation; Additional info: I83.009 - varicose veins of unspecified lower extremity w. . . TECHNIQUE: Imaging protocol: Computed tomographic angiography of the of the abdominal aorta, pelvis and bilateral lower extremities with contrast. 3D rendering (Not supervised by radiologist): MIP and/or 3D reconstructed images were created by the technologist. Radiation optimization: All CT scans at this facility use at least one of these dose optimization techniques: automated exposure control; mA and/or kV adjustment per patient size (includes targeted exams where dose is matched to clinical indication); or iterative reconstruction. Contrast material: OMNI 350; Contrast volume: 95 ml; Contrast route: INTRAVENOUS (IV); REPORTING DATA: Count of CT and Cardiac NM exams in prior 12 months: This patient has received 0 known CTs and 0 known cardiac nuclear medicine studies in the 12 months prior to the current study. COMPARISON: CT angio abd aorta runof [id number] 04/20/2019 11:03 AM RADIATION DOSE METRICS: Total DLP (mGy-cm): 1305.51 FINDINGS: Aorta: The partially visualized descending thoracic aorta is unremarkable. The abdominal aorta is nonaneurysmal. Celiac trunk and mesenteric arteries: Celiac artery is patent. The superior mesenteric artery is patent. The inferior mesenteric artery is patent. Renal arteries: The renal arteries are patent. Right iliac arteries: No occlusion or significant stenosis. Right femoral/popliteal arteries: Atherosclerotic disease causing [id number] stenosis in the right common femoral artery. The right profunda femoral artery is patent. Multifocal mild and moderate stenosis in the right SFA. Moderate to severe short segment stenosis in the right popliteal artery , just proximal to the popliteal stent. The right popliteal artery stent remains patent. Right infrapopliteal arteries: The right anterior tibial artery is patent below the level of the ankle joint into the foot. Right peroneal artery is patent to the level of the ankle joint. Prominent calcified atherosclerotic disease in the right posterior tibial artery causing some degree of stenosis throughout the course but overall remains patent below the level of the ankle into the foot. Left iliac arteries: No occlusion or significant stenosis. Left femoral/popliteal arteries: Multifocal mild stenosis in the left SFA. The left profunda femoral artery is patent. Multifocal edls-mg-[id number] stenosis in the left popliteal artery. The left popliteal artery stent is patent. Moderate to severe stenosis in the distal left popliteal artery just proximal to the origin of the anterior tibial artery. Left infrapopliteal arteries: The left anterior tibial artery is patent below the level of the ankle joint into the foot. The left peroneal artery is patent to the level of the ankle joint. Prominent calcified atherosclerotic disease in the left posterior tibial artery causing some degree of stenosis throughout the course but overall remains patent below the level of the ankle into the foot. Lungs: Thin walled air-filled pneumatocele in the posterior basal segment of the right lower lobe. Liver: The liver is normal in size and contour. Gallbladder and bile ducts: The gallbladder is distended with normal wall thickness and does not demonstrate calcified gallstones. No intra- or extra-hepatic biliary ductal dilatation. Pancreas: The pancreas appears normal. Spleen: Small splenule noted. The spleen appears unremarkable. Adrenal glands: Stable indeterminate right adrenal nodule measuring up to 2.8 cm and 73 Hounsfield units. The left adrenal gland appears unremarkable. Kidneys and ureters: Fluid density simple appearing cyst in the medial upper pole the left kidney similar to prior exam. The kidneys enhance symmetrically. Stomach and bowel: The stomach appears unremarkable. Small air-filled duodenal diverticula noted. The small bowel loops are not abnormally dilated. The large bowel loops are not abnormally dilated. Colonic diverticulosis without signs of acute diverticulitis. Appendix: The appendix is not readily identified. No inflammatory changes identified in the expected region of the appendix. Urinary bladder: Unremarkable. No mass. Reproductive: Unremarkable as visualized. Intraperitoneal space: No ascites. No significant fluid collection. Lymph nodes: A few mildly prominent lymph nodes again noted adjacent to the posterior right margin of the IVC similar to prior exam. Bones/joints: Bilateral total hip arthroplasties noted. Multilevel degenerative changes in the spine. Soft tissues: 1.9 cm fat containing umbilical hernia. Bilateral lower extremity edema. Prominent left lower extremity varicosities noted along the medial margin of the thigh and medial and posterior margins of the lower leg. Skin defects in the left lower extremity noted. Superficial soft tissue calcifications along the anterior lower left leg. CT/CT angio abd aorta runof [id number] IMPRESSION: 1. Moderate to severe short segment stenosis in the right popliteal artery, just proximal to the popliteal stent. 2. Moderate to severe stenosis in the distal left popliteal artery just proximal to the origin of the anterior tibial artery. 3. Bilateral lower extremity edema. Prominent left lower extremity varicosities.
[2022-11-13 07:34] LABS: Blood Urea Nitrogen 30 mg/dL (8-23)
[2022-11-13] MEDS: iohexol 350 mg/mL 500 mL Btl (per mL) IV (07:52)
== END 2022-11-13 06:42 | disposition home or self-care (01) ==
PROVIDERS: PCP Family Medicine; Visit Provider Thoracic Surgery (Cardiothoracic Vascular Surgery)
DX: I83.009 Varicose veins of unspecified lower extremity with ulcer of unspecified site (principal)
CPT/HCPCS: 11042; 11045; 75635; 82565; 84520; 87070; 87077; 87176; 87186; 87205; 97597; 97598; Q9967

== ENCOUNTER → 2022-11-20 07:55 | Outpatient (BNVA) | payer MEDICARE, MEDICAID, SELFPAY | PROVIDERS: PCP Family Medicine; Visit Provider Nurse Practitioner Family | DX: I96 Gangrene, not elsewhere classified (principal); I87.2 Venous insufficiency (chronic) (peripheral); L89.892 Pressure ulcer of other site, stage 2; L97.822 Non-pressure chronic ulcer of other part of left lower leg with fat layer exposed; L97.312 Non-pressure chronic ulcer of right ankle with fat layer exposed | CPT/HCPCS: 97597; 97598 ==

== ENCOUNTER → 2022-11-21 11:36 | Day surgery (SDC) | payer MEDICARE, MEDICAID, SELFPAY ==
--- NOTE | 2022-11-21 10:54 | XR_ITS ---
WS: [id number] CHEST XRAY TECHNIQUE: Portable chest. CLINICAL INFORMATION: post PICC COMPARISON: August 02, 2021 FINDINGS: LEFT PICC line with tip in the distal SVC good position. No pneumothorax. Heart: Cardiomegaly. Calcification. Lungs: Lungs are clear. No consolidation or pleural effusion. Bones: Chronic RIGHT rib fractures or thoracotomy. XR/XR chest 1V portable [id number] IMPRESSION: LEFT PICC line in good position. No pneumothorax.
[2022-11-21 11:51] VITALS: BP 120/80; PULSE 60; RESP 18; TEMP 36.8; O2SAT 96
--- NOTE | 2022-11-21 13:15 | PC.NURSE ---
Pt to GI infusions for PICC placement. Pt in need of IV Imepenem for 14 days. Pt to receive first dose in GI lab after PICC placed and then to receive remaining doses at [facility] in [place], [place]. Informed consent obtained and risks and benefits discussed with patient. Pt requests PICC to be placed in left arm. Left basilic vein assesed, noted to be 7.5 mm, straight, and best choice for placement. Using sterile technique and MST, vein accessed x 1 stick. Mid-arm circumference measured 10 cm from left AC 29 cm. Trimmed cath length 48 cm with 2 cm external length noted. CXR shows tip in SVC, in good position for use per radiologist. Line secured with stat lock. Insertion site covered with Biopatch, gauze, and TSM. Report called to [facility] Med-reconstructive surgeon. First dose of Imepenem 750 mg infused without difficulty. No reaction noted. Pt to return to [facility] at 6 pm for next dose.
== END ==
LOC: GILAB 11:39
PROVIDERS: PCP Family Medicine; Visit Provider Thoracic Surgery (Cardiothoracic Vascular Surgery)
DX: A49.02 Methicillin resistant Staphylococcus aureus infection, unspecified site (principal)
CPT/HCPCS: 36573; 71045; 96365; J0743

== ENCOUNTER → 2022-11-27 08:10 | Outpatient (BNVA) | payer MEDICARE, MEDICAID, SELFPAY | PROVIDERS: PCP Family Medicine; Visit Provider Thoracic Surgery (Cardiothoracic Vascular Surgery) | DX: I96 Gangrene, not elsewhere classified (principal); I87.2 Venous insufficiency (chronic) (peripheral); L89.892 Pressure ulcer of other site, stage 2; L97.822 Non-pressure chronic ulcer of other part of left lower leg with fat layer exposed; L97.312 Non-pressure chronic ulcer of right ankle with fat layer exposed | CPT/HCPCS: 11042; 11045; 97597; 97598 ==

== ENCOUNTER → 2022-12-04 08:15 | Outpatient (BNVA) | payer MEDICARE, MEDICAID, SELFPAY | PROVIDERS: PCP Family Medicine; Visit Provider Thoracic Surgery (Cardiothoracic Vascular Surgery) | DX: I96 Gangrene, not elsewhere classified (principal); I87.2 Venous insufficiency (chronic) (peripheral); L89.892 Pressure ulcer of other site, stage 2; L97.822 Non-pressure chronic ulcer of other part of left lower leg with fat layer exposed; L97.312 Non-pressure chronic ulcer of right ankle with fat layer exposed | CPT/HCPCS: 11042; 11045; 97597; 97598 ==

== ENCOUNTER → 2022-12-11 07:59 | Outpatient (BNVA) | payer MEDICARE, MEDICAID, SELFPAY | PROVIDERS: PCP Family Medicine; Visit Provider Thoracic Surgery (Cardiothoracic Vascular Surgery) | DX: I96 Gangrene, not elsewhere classified (principal); I87.2 Venous insufficiency (chronic) (peripheral); L89.892 Pressure ulcer of other site, stage 2; L97.822 Non-pressure chronic ulcer of other part of left lower leg with fat layer exposed; L97.312 Non-pressure chronic ulcer of right ankle with fat layer exposed | CPT/HCPCS: 11042; 11045; 87070; 87077; 87176; 87186; 87205; 97597 ==

== ENCOUNTER → 2022-12-12 12:48 | Day surgery (SDC) | payer MEDICARE, MEDICAID, SELFPAY ==
[2022-12-12 13:00] VITALS: BP 109/64; PULSE 52; RESP 18; TEMP 36.8; O2SAT 99
== END ==
LOC: GILAB 12:49
PROVIDERS: PCP Family Medicine; Visit Provider Thoracic Surgery (Cardiothoracic Vascular Surgery)
DX: A49.02 Methicillin resistant Staphylococcus aureus infection, unspecified site (principal)
CPT/HCPCS: 36573

== ENCOUNTER → 2022-12-17 11:55 | Outpatient (BNVA) | payer MEDICARE, MEDICAID, SELFPAY | PROVIDERS: PCP Family Medicine; Visit Provider Internal Medicine | DX: I10 Essential (primary) hypertension (principal); R06.02 Shortness of breath; Z87.891 Personal history of nicotine dependence; L97.929 Non-pressure chronic ulcer of unspecified part of left lower leg with unspecified severity | CPT/HCPCS: 99214 ==

== ENCOUNTER → 2022-12-18 07:52 | Outpatient (BNVA) | payer MEDICARE, MEDICAID, SELFPAY | PROVIDERS: PCP Family Medicine; Visit Provider Thoracic Surgery (Cardiothoracic Vascular Surgery) | DX: I96 Gangrene, not elsewhere classified (principal); L89.892 Pressure ulcer of other site, stage 2; L97.822 Non-pressure chronic ulcer of other part of left lower leg with fat layer exposed; L97.312 Non-pressure chronic ulcer of right ankle with fat layer exposed | CPT/HCPCS: 11042; 11045; 97597; 97598 ==

== ENCOUNTER 2022-12-19 17:41 | Emergency (ER) | payer MEDICARE, MEDICAID, SELFPAY ==
[2022-12-19 18:07] VITALS: BP 120/63; PULSE 68; RESP 16; TEMP 37.1; O2SAT 95
--- NOTE | 2022-12-19 19:58 | ED_ITS ---
HPI - General Adult General: Chief complaint: General Medical Stated complaint: pic line leaking Time Seen by Provider: 12/19/22 19:57 History of Present Illness: 82-year-old male patient comes in today for complaints of leakage from a PICC line/midline site when trying to infuse his antibiotic. 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 Patient attempted to infuse the medication today but states the liquid just came out from around the site. Patient denies any other concerns. Patient was not able to infuse the medicine and was instructed by home health to come to the ER. 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 History of coronary artery stent placement Family History Denies family history of Diabetes CAD (coronary artery disease) Clotting disorder Dementia Hyperlipidemia Psychiatric illness Chronic kidney disease (CKD) Suicide Anesthesia complication Bleeding disorder Family history of premature coronary artery disease Lung disease Cancer Hypertension Stroke Social History Smoking and tobacco status: former smoker Quit status (tobacco): has quit using tobacco Alcohol intake: never Substance/Drug Use: never Physical Exam Const: COMMON NORMALS: alert HENMT: COMMON NORMALS: normocephalic HEAD & SCALP: normocephalic Neck/C-Spine: COMMON NORMALS: full ROM Resp: COMMON NORMALS: normal respiratory effort Cardio: COMMON NORMALS: regular rate RATE: regular rate Extremity: RIGHT UPPER EXTREMITY: Yes upper arm (Intact midline. Minimal swelling at insertion site) Neuro: SENSORIUM/ORIENTATION: Yes alert Skin: NARRATIVE SKIN EXAM: No redness noted at insertion site of midline Course Vital Signs: Vital signs: Vital Signs Temperature 98.7 F 12/19/22 18:07 Pulse Rate 66 12/19/22 20:24 Respiratory Rate 16 12/19/22 18:07 Blood Pressure 133/63 12/19/22 20:24 Pulse Oximetry 99 12/19/22 20:24 Oxygen Delivery Me thod Room Air 12/19/22 20:24 MDM - General Adult Medical Decision Making 82-year-old male patient comes in for probable infiltration of the PICC line site. Patient had leakage from the site when ever infusing his antibiotic today. This was new for the patient. Patient had talked to his home health nurse who recommended patient come to the ER. Patient appears nontoxic. Patient reports no other concerns. Site has fluid around the insertion. Patient denies any chest pain or difficulty breathing. Differential diagnosis includes infection of PICC line, infiltration of PICC line, defect in PICC line. Recommended replacement of PICC line. Consulted staff for removal and replacement. Patient reported understanding and agreed to plan. Lab Data Radiology Impressions Chest X-Ray 12/19/22 21:59 IMPRESSION: 1. Left PICC tip projects over the superior vena cava. 2. Enlarged cardiac silhouette with pulmonary venous distension. No convincing interstitial edema. Discharge Plan Discharge Patient Disposition: Home Clinical Impression: Infiltration of peripherally inserted central catheter (PICC) Qualifiers: Encounter type: initial encounter Qualified Code(s): T82.898A - Other specified complication of vascular prosthetic devices, implants and grafts, initial encounter Condition: Stable Prescriptions: No Action clopidogrel [Plavix] 75 mg tablet 75 mg PO DAILY metoprolol tartrate 25 mg tablet 50 mg PO DAILY simvastatin 80 mg tablet 80 mg PO ONCE Dakin's Solution 0.125 % solution 1 applic topical DAILY Qty: 473 1RF lisinopril 20 mg tablet 20 mg PO DAILY furosemide [Lasix] 40 mg tablet 60 mg PO BID Qty: 90 6RF Dakin's Solution 0.25 % solution 1 irrig topical DAILY Qty: 500 2RF Rx Instructions: dampen gauze and apply to all wounds once daily. Eliquis 5 mg Tablet 5 mg PO BID pantoprazole 40 mg tablet,delayed release (DR/EC) 40 mg PO DAILY Discharge Orders: Discharge ED (Routine); Ordered 12/19/22 Ordered By: Alex Hanks Referrals: Иван Lopez [Primary Care Provider] - Discharge Diet: Usual diet Discharge Activity: Increase activity as tolerated Patient Instructions: Opioid Safety, Pain Management Activity Restrictions/Additional Instructions: Continue with routine medications and plan as directed. Follow-up with help desk support specialist for further treatment and evaluation. Return to ER for new concerns. Coding Level of Care Code ED Psychology Intern for Kaylene Breaux
[2022-12-19 20:24] VITALS: BP 133/63; PULSE 66; O2SAT 99
--- NOTE | 2022-12-19 21:59 | XRR_ITS ---
PROCEDURE INFORMATION: Exam: XR Chest Exam date and time: 12/19/2022 9:47 PM Age: 82 years old Clinical indication: Device placement; Picc; Additional info: Picc placement TECHNIQUE: Imaging protocol: Radiologic exam of the chest. Views: 1 view. COMPARISON: CR XR chest 1V portable [id number] 11/21/2022 12:21 PM FINDINGS: Tubes, catheters and devices: Left PICC tip projects over the superior vena cava. Lungs: Mild pulmonary venous distension. Clear lung parenchyma. Pleural spaces: No pleural effusion. No pneumothorax. Heart/Mediastinum: Enlarged cardiac silhouette. Bones/joints: Incompletely healed fractures of the left lateral 7th and 8th ribs noted. XR/XR chest 1V portable [id number] IMPRESSION: 1. Left PICC tip projects over the superior vena cava. 2. Enlarged cardiac silhouette with pulmonary venous distension. No convincing interstitial edema.
--- NOTE | 2022-12-19 22:56 | PC.NURSE ---
PICC Insertion ASO Consulted by house charge for PICC placement for IV therapy >15d. Upon arrival to room, assessed patient had a 10cm long right midline with signs of infiltration. Reported to primary nurse and nurse practitioner; recommended checking with pharmacy regarding medications infused, risk for extravasation and any possible indicated interventions. Upon request from primary nurse, I discontinued right midline. Applied manual pressure to site until hemostasis achieved. Gauze and tegaderm dressing applied. Discussed PICC procedure with patient and provided verbal and written education. Obtained written consent for the procedure. Assessed LUE and determined L brachial vein measuring 5mm best target for cannulation due to size, and lack of evidence of thrombus or stenosis. Using US guidance, MST and sterile technique, accessed vein x1 stick. Advanced device without resistance. Positive blood return. Flushed easily. Device secured. Due to bleeding post-procedure, performed sterile dressing change and applied manual pressure ~10min until no further signs of bleeding. Patient reported taking eliquis and aspirin at home. EBL <20ml. Applied external pressure dressing above tegaderm and instructed patient to remove in 24h. Provided education to report any bleeding from site to primary nurse. X ray obtained for tip location confirmation. Patient tolerated well. Handed off to primary nurse.
== END 2022-12-19 22:59 | disposition home or self-care (01) ==
PROVIDERS: Emergency Provider Nurse Practitioner Family; PCP Family Medicine
DX: T82.898A Other specified complication of vascular prosthetic devices, implants and grafts, initial encounter (principal); Z79.02 Long term (current) use of antithrombotics/antiplatelets; Z79.01 Long term (current) use of anticoagulants; Z87.891 Personal history of nicotine dependence; I10 Essential (primary) hypertension; Y71.1 Therapeutic (nonsurgical) and rehabilitative cardiovascular devices associated with adverse incidents
CPT/HCPCS: 36573; 71045; 99284

== ENCOUNTER 2022-12-23 11:18 | Outpatient (CLI) | payer MEDICARE, MEDICAID, SELFPAY ==
[2022-12-20 15:36] LABS: Alanine Aminotransferase 9 U/L (0-41); Albumin Level 3.2 g/dL (3.5-5.2); Alkaline Phosphatase 75 U/L (40-130); Anion Gap 14.7 (5-19); Aspartate Amino Transferase 16 U/L (0-40); Blood Urea Nitrogen 18 mg/dL (8-23); Calcium 8.4 mg/dL (8.5-10.5); Carbon Dioxide 25 mmol/L (22-29); Chloride 101 mmol/L (98-107); Globulin 3.2 g/dL (1.3-4.6); Glucose 118 mg/dL (65-115); Osmolality Calculated 285 mOsm/kg (285-295); Potassium 4.7 mmol/L (3.5-5.1); Sodium 136 mmol/L (136-145); Total Bilirubin 0.5 mg/dL (0.15-1.2); Total Protein 6.4 g/dL (6.6-8.7)
== END 2022-12-23 11:19 | disposition home or self-care (01) ==
LOC: LAB 11:19
PROVIDERS: PCP Family Medicine; Visit Provider Nurse Practitioner Family
DX: L97.822 Non-pressure chronic ulcer of other part of left lower leg with fat layer exposed (principal)
CPT/HCPCS: 80053

== ENCOUNTER 2022-12-24 13:34 | Outpatient (CLI) | payer MEDICARE, MEDICAID, SELFPAY ==
[2022-12-24 14:24] LABS: Alanine Aminotransferase 6 U/L (0-41); Alkaline Phosphatase 65 U/L (40-130); Anion Gap 13.7 (5-19); Aspartate Amino Transferase 13 U/L (0-40); Blood Urea Nitrogen 22 mg/dL (8-23); Calcium 8.2 mg/dL (8.5-10.5); Carbon Dioxide 24 mmol/L (22-29); Chloride 103 mmol/L (98-107); Globulin 3.3 g/dL (1.3-4.6); Glucose 129 mg/dL (65-115); Osmolality Calculated 287 mOsm/kg (285-295); Potassium 4.7 mmol/L (3.5-5.1); Sodium 136 mmol/L (136-145); Total Bilirubin 0.7 mg/dL (0.15-1.2); Total Protein 6.3 g/dL (6.6-8.7)
== END 2022-12-24 13:35 | disposition home or self-care (01) ==
PROVIDERS: PCP Family Medicine; Visit Provider Thoracic Surgery (Cardiothoracic Vascular Surgery)
DX: I83.009 Varicose veins of unspecified lower extremity with ulcer of unspecified site (principal); L08.9 Local infection of the skin and subcutaneous tissue, unspecified
CPT/HCPCS: 80053

== ENCOUNTER → 2022-12-25 07:59 | Outpatient (BNVA) | payer MEDICARE, MEDICAID, SELFPAY | PROVIDERS: PCP Family Medicine; Visit Provider Thoracic Surgery (Cardiothoracic Vascular Surgery) | DX: L89.892 Pressure ulcer of other site, stage 2 (principal); I87.2 Venous insufficiency (chronic) (peripheral); L97.822 Non-pressure chronic ulcer of other part of left lower leg with fat layer exposed; L97.312 Non-pressure chronic ulcer of right ankle with fat layer exposed | CPT/HCPCS: 11042; 11045; 97597; 97598; A6021 ==

== ENCOUNTER 2022-12-27 05:53 | Outpatient (CLI) | payer MEDICARE, MEDICAID, SELFPAY ==
[2022-12-27] VITALS (23 sets, daily range): BP systolic 105–142; BP diastolic 55–97; PULSE 49–63; RESP 16–30; O2SAT 90–100; BMI 31.8
--- NOTE | 2022-12-27 06:00 | XACV_ITS ---
Ht: 183 cm Wt: 107 kg BSA: 2.36 m2 Any Known Allergies: Other Gender: Male : 1940 Exam Type: Invasive Peripheral Vascular Procedure(s): Procedure Description: Peripheral Cath Diagnostic Procedure Procedure Description: Abdominal aortic angiography Procedure Description: Lower extremities' angiography Exam Priority: Routine Abdominal Diagnostic Findings Distal abdominal aorta: Patent. Lower Extremity Diagnostic Findings INDICATION: Bilateral claudication/non healing ulcers on the left lower extremity. Left lower extremity findings:Left common iliac artery is patent. Left external iliac artery is patent. Left internal iliac artery is patent. Left common femoral artery is patent. Left Profunda artery is patent. Left SFA is patent. Left popliteal artery stent is patent. Left anterior artery is patent. Left TP segment is patent. Left posterior artery is patent. Left popliteal artery is patent. Right lower extremity findings: Right common iliac artery is patent. Right external iliac artery is patent. Right internal iliac artery is patent. Right common femoral artery is patent. Right profunda artery is patent. Right SFA has moderate diffuse disease. Right popliteal artery is patent. Right anterior tibial artery is patent. Proximal right TP segment has heavily calcified 90% stenosis. Right posterior tibial artery is patent. Right peroneal artery is patent. Conclusions Left lower extremity has mild to moderate disease. Medical therapy. 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 We will medically manage the below the knee disease. Recommendations Aggressive risk factor modification. Outpatient cardiology follow up in 4 weeks. Hemodynamic Data Phase:Rest AO : 109.0 / 67.0 ( 85.0 ) @ 9:29:00 AM 106.0 / 66.0 ( 84.0 ) @ 9:31:00 AM Access Site Site: Right Femoral artery Sheath Size: 6 Fr Hemost... Method: Manual Compression Hemost... Success: Successful Procedure Details Findings Procedure Consent Obtained. Pre-Procedure Time Out. Identified patient by full name and date of as verbalized by the patient/guarantor. Does the consent match the physician's order: Yes. Accurate & Complete Informed Consent: Yes. Inpatient/Outpatient History & Physical on Chart: Yes. If H&P is completed, is and addenduem needed: No; If yes, is the addendum complete: N/A. Visualize and Verify Site with Patient/Guarantor: N/A. Relevant Radiology Images available: Yes. Pre-op teaching completed and patient verbalized understanding. The risks, benefits, and alternatives of sedation and/or procedure were discussed by physician. The patient agrees to continue. Procedure started. Correct patient, site and procedure confirmed by cath team. PERRLA. Strong, equal hand erp specialist bilaterally. Lungs clear x 5 lobes. IV Site on Arrival: PICC line left upper arm. IV Fluids: 0.9% NaCl at KVO. 0 mL infused prior to wood preserving plant laborer. Pre Procedural Pulses: bilateral dorsalis pedis was Doppled. Pre Procedural Pulses: bilateral posterior tibial was Doppled. Oxygen started at 2liters/min via nasal canula. bilateral groins was prepped with chloroprep then draped in the usual sterile fashion. Physician notified. Baseline sample Acquired. HR: 73 BPM. Physician arrived. Physician scrubbed in. Immediate Pre-Procedure Time Out. Correct Patient: Yes; Correct Procedure: Yes; Correct Site: Yes; Correct Patient Position: Yes; Correct Supplies: Yes; Dried Flammable Prep: Yes; Blood Products Available: N/A;. Lidocaine 1% infiltrated to the right groin. Arterial access obtained with micropuncture set. Wire and needle removed. Manual pressure held on access site. Arterial access obtained with micropuncture set. Wire and needle removed. Manual pressure held on access site. Arterial access obtained with micropuncture set. Wire and needle removed. Manual pressure held on access site. Ultrasound being used to obtain arterial access. Arterial access obtained with micropuncture set. A 5Fr UF catheter in over wire. Abdominal aortogram performed in AP @ 10 mL/sec for a total of 30 mL. Left common iliac selected and arteriogram with runoff performed @ 10 mL/sec for a total of 30 mL. DSA performed of the left lower leg. Catheter removed over the standard wire. Sheath injected in Right common femoral artery and runoff performed. Physician review of cine films. Physician scrubbed out. A Manual Compression was successful obtaining hemostatsis at the Right Femoral artery insertion site. Post Procedure: Pulses reassessed and unchanged. PERRLA. Strong, equal hand erp specialist bilaterally. No VTE prophylaxis required. Medication's Wasted: Heparin = 1000 units. Medication's Wasted: Other = Fentanyl 75mcg Versed 1 mg. Total IV fluids: 70 mL. Complications: None. Estimated blood loss: 5mL-10mL. Responsiveness - Normal response to verbal stimuli; alert and oriented, PERRLA. Airway - Unaffected, no intervention required; spontaneous ventilation. Circulation: W/N/L, pulses unchanged. Nausea/Vomiting: No. Procedure completed. Patient transferred by stretcher to CPRU. Vital chart was stopped. Procedure Medications Start: 8:04 AM Stop: 8:04 AM Medication: Versed 1 mg and Fentanyl 25 mcg Amount: 1 Route: I.V. I, the attending physician, have reviewed and verified all procedure medications. Yes, all medications given per verbal order History/Risk Factors Hypertension: Yes Dyslipidemia: No Peripheral Arterial Disease (PAD): Yes Obesity: No Renal Disease: No Tobacco Use: Former Prior Interventions PCI: No CABG: No Valve Surgery: No Report Signatures Finalized by Maurisio Cooper MD on 01/13/2023 10:48 AM
[2022-12-27 06:42] LABS: Basophils % 0.6 %; Eosinophils # 0.3 10^3/uL (0.0-0.8); Eosinophils % 3.6 %; Hematocrit 31.1 % (37-53); Lymphocytes # 1.8 10^3/uL (0.8-4.8); Lymphocytes % 24.9 %; Mean Corpuscular HGB Conc 30.2 g/dL (30-55); Mean Corpuscular Hemoglobin 24.1 pg (27-33); Mean Corpuscular Volume 79.7 fl (82-101); Monocytes # 0.7 10^3/uL (0.2-0.9); Monocytes % 9.9 %; Neutrophils # 4.33 10^3/uL (1.8-7.7); Neutrophils % 60.7 %; Nucleated Red Blood Cells % 0 %; Platelet Count 202 10^3/cmm (157-399); Red Cell Distribution Width 21.3 % (12.1-15.1); White Blood Count 7.14 10^3/uL (3.29-11.43)
[2022-12-27] MEDS: aspirin 325 mg Tablet PO (06:51)
[2022-12-27] MEDS: diphenhydrAMINE 50 mg Capsule PO (06:51)
[2022-12-27 06:59] LABS: Anion Gap 13.5 (5-19); Blood Urea Nitrogen 17 mg/dL (8-23); Calcium 8.2 mg/dL (8.5-10.5); Carbon Dioxide 26 mmol/L (22-29); Chloride 104 mmol/L (98-107); Glucose 108 mg/dL (65-115); Osmolality Calculated 290 mOsm/kg (285-295); Potassium 4.5 mmol/L (3.5-5.1); Sodium 139 mmol/L (136-145)
--- NOTE | 2022-12-27 08:05 | W.PM.OPSUD ---
Surgery/Procedure H&P Update DATE OF PROCEDURE: December 27, 2022 DATE H&P PERFORMED: 12/17/22 H&P UPDATE INFORMATION: I have reviewed H&P completed within last 30 days, I have examined patient prior to procedure and No changes to prior documentation PREOP DIAGNOSIS: Bilateral claudication/non healing ulcers on the left lower extremity PRIMARY INDICATION FOR PROCEDURE: Bilateral claudication/non healing ulcers on the left lower extremity PLANNED PROCEDURE: Operation Date: 12/27/22 07:00 Proposed Procedures p Periph Angiogram 52401,I99.8, I83.009, L08.9(Not Applicable) - Maurisio Cooper M.D Possible intervention PATIENT REASSESSED PRIOR TO SEDATION, WITH NO CHANGE NOTED: Yes PHYSICAL EXAM: alert, oriented x 3, clear to auscultation bilaterally and regular rate & rhythm AIRWAY EVAL/ANESTHESIA PLAN: normal airway, ASA III, Local Anesthesia, Risks, benefits & alternatives of sedation and/or procedure discussed and Patient agrees to continue as planned ADDITIONAL INFORMATION: Moderate sedation
--- NOTE | 2022-12-27 09:59 | PC.NURSE ---
cpru nurse received pt from labor relations supervisor. pt alert and oriented x3. pt complains of back pain but not groin pain. pt has chronic back pain. pressure was held on right femoal access point in labor relations supervisor. no bruising or hematoma noted. pt educated on restrictions of right leg and stated understanding. pt will be re-educated throughout recovery while in CPRU. plan is to recover here in cpru until a room is available on csu.
== END 2022-12-27 17:20 | disposition home or self-care (01) ==
LOC: CCL 06:31 → CSU 10:40
PROVIDERS: PCP Family Medicine; Visit Provider Internal Medicine
DX: I70.213 Atherosclerosis of native arteries of extremities with intermittent claudication, bilateral legs (principal); L97.829 Non-pressure chronic ulcer of other part of left lower leg with unspecified severity; L97.819 Non-pressure chronic ulcer of other part of right lower leg with unspecified severity; I10 Essential (primary) hypertension; Z87.891 Personal history of nicotine dependence
CPT/HCPCS: 36415; 75625; 75716; 80048; 85025; 96361; 96365; 99152; 99153; C1769; C1887; C1894; J1644; J2250; J3010; J7030; Q0163; Q9967

== ENCOUNTER → 2023-01-01 07:48 | Outpatient (BNVA) | payer MEDICARE, MEDICAID, SELFPAY | PROVIDERS: PCP Family Medicine; Visit Provider Thoracic Surgery (Cardiothoracic Vascular Surgery) | DX: I96 Gangrene, not elsewhere classified (principal); I87.2 Venous insufficiency (chronic) (peripheral); L97.822 Non-pressure chronic ulcer of other part of left lower leg with fat layer exposed; L97.312 Non-pressure chronic ulcer of right ankle with fat layer exposed; L89.892 Pressure ulcer of other site, stage 2 | CPT/HCPCS: 11042; 11045; 97597; 97598; A6248 ==

== ENCOUNTER → 2023-01-08 07:44 | Outpatient (BNVA) | payer MEDICARE, MEDICAID, SELFPAY | PROVIDERS: PCP Family Medicine; Visit Provider Thoracic Surgery (Cardiothoracic Vascular Surgery) | DX: I96 Gangrene, not elsewhere classified (principal); I87.2 Venous insufficiency (chronic) (peripheral); L97.812 Non-pressure chronic ulcer of other part of right lower leg with fat layer exposed; L97.822 Non-pressure chronic ulcer of other part of left lower leg with fat layer exposed; L97.312 Non-pressure chronic ulcer of right ankle with fat layer exposed | CPT/HCPCS: 11042; 11045; 97597; A6248 ==

== ENCOUNTER → 2023-01-15 07:53 | Outpatient (BNVA) | payer MEDICARE, MEDICAID, SELFPAY | PROVIDERS: PCP Family Medicine; Visit Provider Nurse Practitioner Family | DX: I96 Gangrene, not elsewhere classified (principal); L89.892 Pressure ulcer of other site, stage 2; L97.322 Non-pressure chronic ulcer of left ankle with fat layer exposed; I87.2 Venous insufficiency (chronic) (peripheral); L97.312 Non-pressure chronic ulcer of right ankle with fat layer exposed; L97.822 Non-pressure chronic ulcer of other part of left lower leg with fat layer exposed | CPT/HCPCS: 11042; 11045 ==

== ENCOUNTER → 2023-01-22 07:47 | Outpatient (BNVA) | payer MEDICARE, MEDICAID, SELFPAY | PROVIDERS: PCP Family Medicine; Visit Provider Thoracic Surgery (Cardiothoracic Vascular Surgery) | DX: I96 Gangrene, not elsewhere classified (principal); L89.892 Pressure ulcer of other site, stage 2; I87.2 Venous insufficiency (chronic) (peripheral); L97.822 Non-pressure chronic ulcer of other part of left lower leg with fat layer exposed; L97.312 Non-pressure chronic ulcer of right ankle with fat layer exposed | CPT/HCPCS: 97597 ==

== ENCOUNTER → 2023-01-29 07:44 | Outpatient (BNVA) | payer MEDICARE, MEDICAID, SELFPAY | PROVIDERS: PCP Family Medicine; Visit Provider Thoracic Surgery (Cardiothoracic Vascular Surgery) | DX: I96 Gangrene, not elsewhere classified (principal); I87.2 Venous insufficiency (chronic) (peripheral); L97.822 Non-pressure chronic ulcer of other part of left lower leg with fat layer exposed; L97.311 Non-pressure chronic ulcer of right ankle limited to breakdown of skin; L89.892 Pressure ulcer of other site, stage 2 | CPT/HCPCS: 11042; 11045; 87070; 87077; 87176; 87186; 87205; 97597; 97598 ==